=== PATIENT | male | born 1985 | race Caucasian/White ===

== ENCOUNTER 2022-12-07 07:11 | Emergency (ER) | payer OTHER, SELFPAY ==
[2022-12-07 07:14] VITALS: BP 138/72; PULSE 65; RESP 18; TEMP 36.8; O2SAT 99; BMI 29.5
--- NOTE | 2022-12-07 07:31 | ED.NAVMDI1 ---
HPI - Nausea/Vomiting/Diarrhea General Chief complaint: Nausea/Vomiting/Diarrhea Stated complaint: VOMITING Time Seen by Provider: 12/07/22 07:31 Source: patient Mode of arrival: walk-in History of Present Illness HPI Narrative: Patient does emergency department complaining of nausea, vomiting. Patient states he is in rehab for heroine abuse. He has been vomiting and diarrhea for the last 3 days and chills. He has not been able to keep anything down he feels dehydrated. Last time he used heroin was 3 days ago. He denies any fever, chills, cough, chest pain, shortness of breath. He denies any abdominal pain. He denies any hematemesis, melena, hematochezia. He was given Phenergan at 5 in the morning has not had any relief. Related Data Allergies Allergy/AdvReac Type Severity Reaction Status Date / Time No Known Drug Allergies Allergy Verified 12/07/22 07:13 Review of Systems ROS Status of ROS 10 or more systems reviewed and unremarkable except as noted in history and below Exam Narrative Exam Narrative: Nurses notes and vital signs reviewed and patient is not hypoxic. General: Nontoxic, Well-appearing and in no apparent distress. Skin: Warm, dry, no pallor noted. No Rash Head: Normocephalic, atraumatic. Neck: Supple, non-tender. Eye: Pupils are equal, round and EOMI. No scleral icterus. Ears, Nose, Mouth, and Throat: TM clear, no posterior oropharynx erythema or nasal mucosal hypertrophy, uvula is mid-line Oral mucosa is moist Cardiovascular: Regular Rate and Rhythm without murmur, gallop or rub. Respiratory: No accessory muscle use or respiratory distress. Lungs are clear to auscultation, no wheezing, rales or rhonchi Chest Wall: no tenderness Back: No midline thoracic or lumbar vertebral tenderness. No CVA tenderness Musculoskeletal: normal ROM, no calf or popliteal tenderness, no lower extremity edema/swelling GI: Abdomen is soft, non-distended. Normal bowel sounds. No masses appreciated. No tenderness to palpation. No rebound, guarding, or rigidity noted. Neurological: A&O x4. No cranial nerve dysfunction observed. No truncal ataxia. Moves all extremities. Sensation intact. Psychiatric: Cooperative and interactive. Normal mood and affect. Constitutional Vital Signs, click to edit/add: Last Vital Signs Temp 98.2 F 12/07/22 07:14 Pulse 65 12/07/22 07:14 Resp 18 12/07/22 07:14 BP 138/72 H 12/07/22 07:14 Pulse Ox 99 12/07/22 07:14 O2 Del Method Room Air 12/07/22 07:14 Course Vital Signs Vital signs: Vital Signs Temperature 98.2 F 12/07/22 07:14 Pulse Rate 65 12/07/22 07:14 Respiratory Rate 18 12/07/22 07:14 Blood Pressure 138/72 H 12/07/22 07:14 Pulse Oximetry 99 12/07/22 07:14 Oxygen Delivery Method Room Air 12/07/22 07:14 Temperature 98.2 F 12/07/22 07:14 Pulse Rate 65 12/07/22 07:14 Respiratory Rate 18 12/07/22 07:14 Blood Pressure 138/72 H 12/07/22 07:14 Pulse Oximetry 99 12/07/22 07:14 Oxygen Delivery Method Room Air 12/07/22 07:14 MDM - Nausea/Vomiting/Diarrhea MDM Narrative Medical decision making narrative: Patient given Zofran, and IV fluids. He requested medication for restlessness and given clonidine 0.1 mg po. Patient is tolerating by mouth.Patient stated he wanted something to help him sleep and he was feeling restless. He was given hydroxyzine and clonidine 0.2 mg by mouth. Patient felt better. He is tolerating by mouth. At this time the patient is without objective evidence of an acute process requiring hospitalization or inpatient management. The patient has remained hemodynamically stable. No additional indication for emergent studies at this time. I answered all questions. Discussed discharge instructions including standard anticipatory guidance and what should prompt a return to the emergency department, including if they get worse are not getting better or develops any new or concerning symptoms. I've given them specific time frame in which to follow-up, and who to follow-up with. The patient demonstrates understanding. Patient is nontoxic and stable for discharge with outpatient follow-up. This note was created with the assistance of a speech recognition program. Although the intention is to generate documents that actually reflects the content of the visit, no guarantees can be provided that every mistake has been identified and corrected by editing. Differential Diagnosis Differential diagnosis: Likely drug-induced nausea and vomiting and dehydration Medical Records Attestation: I reviewed the patient's medical records. Medical records narrative: [facility] documents reviewed. Lab Data Attestation: I reviewed the patient's lab results. Discharge Plan Discharge Chief Complaint: Nausea/Vomiting/Diarrhea Clinical Impression: Withdrawal from opioids, Dehydration Patient Disposition: Home, Self-Care Time of Disposition Decision: 11:07 Condition: Good Mode of Transportation: Private Vehicle Instructions: Opioid Withdrawal (ED) Stand Alone Forms: Portal Instructions Referrals: LILIBETH FLETCHER [Primary Care Provider] - 1 week Discharge Date/Time: 12/07/22 11:18
[2022-12-07] MEDS: ONDANSETRON PF 4 MG/2 ML VIAL IV (07:41)
[2022-12-07] MEDS: 0.9 % SODIUM CHLORIDE 1,000 ML 100 ML IV (07:41)
[2022-12-07] MEDS: CLONIDINE HCL 0.1 MG TABLET PO (08:26)
[2022-12-07] MEDS: DIPHENHYDRAMINE HCL 50 MG/ML (1ML) VIAL IV (08:48)
[2022-12-07] MEDS: CLONIDINE HCL 0.1 MG TABLET 0.2 MG PO (09:49)
[2022-12-07] MEDS: HYDROXYZINE PAMOATE 25 MG CAPSULE 50 MG PO (10:00)
[2022-12-07] MEDS: ORPHENADRINE 60 MG/ 2 ML VIAL IV (10:40)
== END 2022-12-07 11:18 | disposition home or self-care (01) ==
PROVIDERS: Emergency Provider Emergency Medicine; PCP Nurse Practitioner Family
DX: E86.0 Dehydration (principal); F11.23 Opioid dependence with withdrawal
CPT/HCPCS: 96361; 96374; 96375; 99284

== ENCOUNTER 2022-12-08 02:13 | Emergency (ER) | payer OTHER, SELFPAY ==
[2022-12-08] VITALS (19 sets, daily range): BP systolic 93–136; BP diastolic 62–76; PULSE 52–80; RESP 15–24; TEMP 37.3; O2SAT 97–99; BMI 21.7
[2022-12-08 03:08] LABS: Basophils Percent Auto 0.2 % (0.2-2.0); Hematocrit 39.7 % (42.0-54.0); Hemoglobin 13.8 g/dL (14.0-18.0); Immature Granulocytes Abs Auto 0.03 10^3/uL (0.00-0.03); Immature Granulocytes Pct Auto 0.3 % (0.0-0.5); Lymphocytes Absolute Auto 1.1 10^3/uL (1.2-3.8); Lymphocytes Percent Auto 10.3 % (20.5-60.0); Mean Corpuscular HGB Conc 34.8 g/dL (29.9-35.2); Mean Corpuscular Hemoglobin 30.1 pg (25.9-34.0); Mean Corpuscular Volume 86.7 fL (80.0-94.0); Mean Platelet Volume 9.6 fL (9.5-13.5); Monocytes Absolute Auto 0.9 10^3/uL (0.3-0.8); Monocytes Percent Auto 9.1 % (1.7-12.0); Neutrophils Absolute Auto 8.3 10^3/uL (1.4-6.5); Neutrophils Percent Auto 80.1 % (43.0-75.0); Platelet Count 282 10^3/uL (150-450); Red Blood Count 4.58 10^6/uL (4.70-6.10); Red Cell Distribution Width 11.9 % (11.0-15.0); White Blood Count 10.4 10^3/uL (4.0-11.0)
[2022-12-08 03:19] LABS: Alanine Aminotransferase 21 U/L (16-63); Albumin Globulin Ratio 1.3; Alkaline Phosphatase 57 U/L (46-116); Anion Gap 16.9; Aspartate Amino Transferase 31 U/L (15-37); BUN Creatinine Ratio 12.5; Bilirubin Total 1.7 mg/dL (0.2-1.0); Calcium 8.9 mg/dL (8.5-10.1); Chloride 97 mmol/L (98-107); Estimated GFR (African America >60 (>=60); Estimated GFR (Non-African Ame >60 (>=60); Globulin 3.2 g/dL; Glucose 134 mg/dL (74-106); Sodium 134 mmol/L (136-145); Total Protein 7.2 g/dL (6.4-8.2)
[2022-12-08] MEDS: PROMETHAZINE HCL 25 MG/ML VIAL 12.5 MG IV ×2 (03:23→04:31)
[2022-12-08] MEDS: FAMOTIDINE/PF 20 MG/2 ML VIAL IV (03:23)
[2022-12-08] MEDS: 0.9 % SODIUM CHLORIDE 1,000 ML 1000 ML IV ×2 (03:24→04:14)
[2022-12-08 03:35] LABS: Potassium 2.9 mmol/L (3.5-5.1)
--- NOTE | 2022-12-08 03:54 | ED.GENADUL1 ---
HPI - General Adult General Chief complaint: Nausea/Vomiting/Diarrhea Stated complaint: FEVER Time Seen by Provider: 12/08/22 02:54 Source: patient Mode of arrival: walk-in Limitations: no limitations History of Present Illness HPI narrative: This 37-year-old male with a history of substance abuse presents for reevaluation of nausea, vomiting and anxiety. He is currently at [facility] for heroin. He states he last used heroin 3 days ago. He states they have medications to give him but he cannot keep anything down. He states he has not slept in 3 days and wants something to help him sleep. He was seen here earlier today and given medications including hydroxyzine, Zofran and clonidine. The patient states he has gone through detox before approximately 4 years ago and was clean for 4 years. He states to me that he wants Ativan to help him sleep. I explained to him that I will not give him Ativan as that is another controlled substance. He states that detox centers prescribed Ativan. I signed him that I understand this but I am not a detox center, this is an emergency department and I'm not going to give him any controlled substances. Related Data Home Medications Medication Instructions Recorded Confirmed clonidine HCl 0.1 mg tablet 0.1 mg PO DAILY 12/08/22 12/08/22 desmopressin 0.1 mg tablet 0.1 mg PO DAILY 12/08/22 12/08/22 gabapentin 300 mg capsule 300 mg PO Q12H 12/08/22 12/08/22 methocarbamol 750 mg tablet 750 mg PO 12/08/22 ondansetron 8 mg disintegrating 8 mg PO Q8H 12/08/22 12/08/22 tablet pramipexole 0.5 mg tablet 0.5 mg PO 12/08/22 quetiapine 50 mg tablet 50 mg PO Q6H 12/08/22 12/08/22 Allergies Allergy/AdvReac Type Severity Reaction Status Date / Time No Known Drug Allergies Allergy Verified 12/08/22 02:20 Review of Systems ROS Status of ROS 10 or more systems reviewed and unremarkable except as noted in history and below PFSH PFS Social History Smoking status: Current every day smoker Exam Narrative Exam Narrative: Nurses note and vital signs reviewed and patient is not hypoxic. Blood pressure is moderately low, he has a normal pulse, he is not hypoxic with pulse ox of 99 percent on room air General: The patient appears uncomfortable but is nontoxic. He had one episode of emesis after arrival. No respiratory distress Skin: Warm, dry, no pallor noted. There is no rash noted. Head: Normocephalic, atraumatic Eye: Normal conjunctiva, no drainage, EOMI. PERRL, No scleral icterus Ears, Nose, Mouth, and Throat: oral mucosa is moist. Cardiovascular: Regular Rate and Rhythm S1 and S2, no murmurs rubs or gallops appreciated Respiratory: Patient is in no distress, no accessory muscle use, lungs are clear to auscultation, no wheezing, rales or rhonchi Back: non-tender, no CVA tenderness bilaterally to percussion. GI: Normal bowel sounds, no tenderness to palpation, no masses appreciated. No rebound, guarding, or rigidity noted. Musculoskeletal: Moving all extremities, no deformity noted Neurological: A&O x4, normal speech Psychiatric: Cooperative, Anxious, requesting Ativan Constitutional Vital Signs, click to edit/add: Last Vital Signs Temp 99.1 F 12/08/22 02:16 Pulse 61 12/08/22 05:11 Resp 16 12/08/22 05:11 BP 113/67 12/08/22 06:17 Pulse Ox 99 12/08/22 05:11 O2 Del Method Room Air 12/08/22 05:11 Course Vital Signs Vital signs: Vital Signs Temperature 99.1 F 12/08/22 02:16 Pulse Rate 70 12/08/22 02:16 Respiratory Rate 18 12/08/22 02:16 Blood Pressure 93/62 12/08/22 02:16 Pulse Oximetry 99 12/08/22 02:16 Oxygen Delivery Method Room Air 12/08/22 02:16 Temperature 99.1 F 12/08/22 02:16 Pulse Rate 61 12/08/22 05:11 Respiratory Rate 16 12/08/22 05:11 Blood Pressure 113/67 12/08/22 06:17 Pulse Oximetry 99 12/08/22 05:11 Oxygen Delivery Method Room Air 12/08/22 05:11 Medical Decision Making MDM Narrative Medical decision making narrative: This 37-year-old male presents to emergency Department for the 2nd time in 24 hours for evaluation of opiate withdrawal. The patient has a history of heroin abuse and checked himself into [facility] after last using heroin 3 days ago. He is having nausea, vomiting, irritability, insomnia, restless leg syndrome. He states he is trying to get clean. He has been given medications at the detox center but he states due to the nausea vomiting he cannot keep anything down. He was seen earlier in this emergency department and given fluids clonidine Zofran with clinical improvement however he went back to the facility and his symptoms recurred. Upon arrival an IV was placed and he was given a liter of normal saline, Phenergan and Pepcid. Routine labs are reviewed. His labs are normal with the exception of a potassium of 2.9 for which she received IV potassium. I also ordered oral potassium but he cannot tolerate it.He continues to have vomiting and was given another 12.5 mg of Phenergan. His agitation has not improved and he was given clonidine. He states he has not slept in 3 days and feels that he can get a couple hours of sleep that he will feel better and be able to tolerate his medications and participate in his detox. I was considering giving him Haldol or Geodon but 1st ordered an EKG to evaluate the QT interval as he has had multiple doses of Phenergan, Benadryl etc. The QT interval was lengthened and I did not feel it was safe to give him an antipsychotic medication that could further prolong the QT interval. I reviewed multiple medications and it seems that the only safe medications to relieve some of his agitation besides clonidine are benzodiazepines. I had initially ordered Restoril for him and tried to convince him to eat some crackers and drink some water. He ate several bites of the crackers but then threw them out stating that he cannot put anything in his stomach. I agreed to give him 1 dose of IV Ativan for his agitation and to help him sleep. He will also be given an additional IV of D5NS with 20 meq of potassium to further correct his potassium since he was unable to tolerate it orally. He'll be discharged to [facility] center with prescription for oral potassium and a copy of his EKG to share with his health care providers at [facility]. He is grateful and understanding of my reluctance to give him a scheduled drug to treat his drug addiction/withdrawl symptoms Lab Data Labs: Lab Results 12/08/22 Range/Units 02:25 WBC 10.4 (4.0-11.0) 10^3/uL RBC 4.58 L (4.70-6.10) 10^6/uL Hgb 13.8 L (14.0-18.0) g/dL Hct 39.7 L (42.0-54.0) % MCV 86.7 (80.0-94.0) fL MCH 30.1 (25.9-34.0) pg MCHC 34.8 (29.9-35.2) g/dL RDW 11.9 (11.0-15.0) % Plt Count 282 (150-450) 10^3/uL MPV 9.6 (9.5-13.5) fL Neut % (Auto) 80.1 H (43.0-75.0) % Lymph % (Auto) 10.3 L (20.5-60.0) % Crisp % (Auto) 9.1 (1.7-12.0) % Eos % (Auto) 0.0 L (0.9-7.0) % Baso % (Auto) 0.2 (0.2-2.0) % Neut # (Auto) 8.3 H (1.4-6.5) 10^3/uL Lymph # (Auto) 1.1 L (1.2-3.8) 10^3/uL Crisp # (Auto) 0.9 H (0.3-0.8) 10^3/uL Eos # (Auto) 0.0 (0.0-0.7) 10^3/uL Baso # (Auto) 0.0 (0.0-0.1) 10^3/uL Abs Immat Gran (auto) 0.03 (0.00-0.03) 10^3/uL Imm/Tot Granulo (auto) 0.3 (0.0-0.5) % Sodium 134 L (136-145) mmol/L Potassium 2.9 L* (3.5-5.1) mmol/L Chloride 97 L (98-107) mmol/L Carbon Dioxide 23.0 (21.0-32.0) mmol/L Anion Gap 16.9 BUN 13.0 (7.0-18.0) mg/dL Creatinine 1.04 (0.70-1.30) mg/dL Est GFR ( Amer) >60 (>=60) Est GFR (Non-Af Amer) >60 (>=60) BUN/Creatinine Ratio 12.5 Glucose 134 H (74-106) mg/dL Calcium 8.9 (8.5-10.1) mg/dL Total Bilirubin 1.7 H (0.2-1.0) mg/dL AST 31 (15-37) U/L ALT 21 (16-63) U/L Alkaline Phosphatase 57 (46-116) U/L Total Protein 7.2 (6.4-8.2) g/dL Albumin 4.0 (3.4-5.0) g/dL Globulin 3.2 g/dL Albumin/Globulin Ratio 1.3 ECG Data Attestation: I personally reviewed and interpreted this ECG as follows: (EKG interpretation sinus rhythm at 65 beats for minute, RSR in lead V1 and V2, nonspecific ST changes, right axis deviation, OH interval is 168 ms, QRS duration is 92 ms, QT 486 ms, QTC 498 ms, no acute ST segment elevation) Discharge Plan Discharge Chief Complaint: Nausea/Vomiting/Diarrhea Clinical Impression: Withdrawal from opioids, Acute hypokalemia Patient Disposition: Home, Self-Care Time of Disposition Decision: 06:31 Condition: Fair Prescriptions / Home Meds: No Action clonidine HCl 0.1 mg tablet 0.1 mg PO DAILY desmopressin 0.1 mg tablet 0.1 mg PO DAILY Rx Instructions: HS gabapentin 300 mg capsule 300 mg PO Q12H quetiapine 50 mg tablet 50 mg PO Q6H pramipexole 0.5 mg tablet 0.5 mg PO ondansetron 8 mg tablet,disintegrating 8 mg PO Q8H methocarbamol 750 mg tablet 750 mg PO Instructions: Hypokalemia (ED), Opioid Withdrawal (ED) Stand Alone Forms: Portal Instructions Referrals: LILIBETH FLETCHER [Primary Care Provider] - 1 week
[2022-12-08] MEDS: POTASSIUM CHLORIDE 10 MEQ IN WATER 100 ML PIGGYBACK IV (04:13)
--- NOTE | 2022-12-08 05:35 | ECG_ITS ---
[facility] [place] Test Date: 2022-12-08 Pat Name: ANTHONY TEE Department: Room: - Gender: Male [employer] Attendant: : 1985 Requested By: LILIBETH FLETCHER Order Number: [id number] Reading MD: RIYA TIJERINA Measurements Intervals [place] Rate: 65 P: 65 CA: 168 QRS: 93 QRSD: 92 T: 91 QT: 486 QTc: 498 Interpretive Statements 1100 Sinus rhythm 2420 RSR (QR) in lead V1/V2, consistent with right ventricular conduction delay 4164 Twave abnormality, possible anterior ischemia 7102 Moderate right axis deviation 9150 abnormal ECG No previous ECG available for comparison Electronically Signed On 12-08-2022 7:23:34 EDT by RIYA TIJERINA
[2022-12-08] MEDS: CLONIDINE HCL 0.1 MG TABLET 0.2 MG PO (06:17)
--- NOTE | 2022-12-08 06:27 | PC.NURSE ---
Report called to [facility]. Will be picking him up.
[2022-12-08] MEDS: LORAZEPAM 2 MG/ML 1 ML VIAL 1 MG IV (06:43)
[2022-12-08] MEDS: POTASSIUM CHLORIDE IN 0.9%NACL 1,000 ML 250 MEQ IV (07:43)
[2022-12-08] MEDS: METOCLOPRAMIDE HCL 10 MG/2 ML VIAL IVP (10:09)
[2022-12-08] MEDS: CLONIDINE HCL 0.1 MG TABLET PO (10:09)
[2022-12-08] MEDS: LORAZEPAM 2 MG/ML 1 ML VIAL IV (10:09)
[2022-12-08] MEDS: DEXTROSE 5%-LACTATED RINGERS 1,000 ML 250 ML IV (11:00)
[2022-12-08] MEDS: POTASSIUM CHLORIDE 10 MEQ ER TABLET 40 MEQ PO (13:28)
--- NOTE | 2022-12-08 14:44 | PC.NURSE ---
1345 pt ambulated to bathroom dc instructions given pt verbalized understanding- pt awaiting ride to [facility]
--- NOTE | 2022-12-08 14:49 | PC.NURSE ---
this nurse calls [facility] again at this time to see if the ride will be coming for the patient staff says she will notfiy staff members
== END 2022-12-08 15:40 | disposition home or self-care (01) ==
PROVIDERS: Emergency Medicine; Emergency Provider Emergency Medicine; PCP Nurse Practitioner Family
DX: F11.23 Opioid dependence with withdrawal (principal); E87.6 Hypokalemia; F17.210 Nicotine dependence, cigarettes, uncomplicated; Z79.899 Other long term (current) drug therapy
CPT/HCPCS: 36415; 80053; 82140; 85025; 93005; 96361; 96374; 96375; 96376; 99285

== ENCOUNTER 2024-03-18 10:24 | Outpatient (OUT) | payer MEDICAID, SELFPAY ==
--- NOTE | 2024-03-18 10:27 | US_ITS ---
The [address] [address] Patient Name: ANTHONY TEE MRN: [id number] date: 1985 Sex: M Assigned Patient Location: US Current Patient Location: Accession/Order Number: [id number] Exam Date: 03/18/2024 10:28 Report Date: 03/19/2024 09:33 At the request of: LILIBETH FLETCHER Procedure: US soft tissue head and neck EXAM: US soft tissue head and neck HISTORY: Cellulitis COMPARISON: None. TECHNIQUE: A scale and color FINDINGS: The region of the patient's palpable abnormality in oval area of hypoechogenicity is observed measuring 1.7 x 0.9 x 0.8 cm surrounded with hypoechogenicity suspected to be subcutaneous edema. This is superficial to the bone US/US soft tissue head and neck IMPRESSION: Indeterminate ultrasound findings possibly representing cellulitis/abscess. Consider CT scan without and with contrast for further characterization Electronically authenticated by: RAMYA WALLER Date: 03/19/2024 09:33
== END 2024-03-18 10:25 | disposition home or self-care (01) ==
LOC: US 10:24
PROVIDERS: PCP Nurse Practitioner Family; Visit Provider Nurse Practitioner Family
DX: L03.90 Cellulitis, unspecified (principal)
CPT/HCPCS: 76536

== ENCOUNTER 2024-08-13 10:06 | Outpatient (OUT) | payer MEDICAID, SELFPAY ==
--- OUTSIDE RECORDS SUMMARY | 2024-08-13 10:10 | XMS_ITS | CCD ---
Author Organization [facility] Care Team Providers Care Wood Machinist Name Role Phone No, Physician Unavailable Unavailable JERARDO EMERY Attending Unavailable EMERYJERARDO FRITZ Attending Unavailable EMERYJERARDO FRITZ Attending Unavailable PacerMarisa Attending Unavailable JERARDO EMERY Attending Unavailable JERARDO EMERY Attending Unavailable PacerMarisa Attending Unavailable CHRISTINASUSAN CAPPS Attending Unavailable CHRISTINASUSAN Attending Unavailable CHRISTINASUSAN Attending Unavailable CHRISTINASUSAN Attending Unavailable CHRISTINASUSAN Attending Unavailable CHRISTINASUSAN Attending Unavailable CHRISTINASUSAN Attending Unavailable CHRISTINASUSAN Attending Unavailable CHRISTINASUSAN Attending Unavailable CHRISTINASUSAN Attending Unavailable CHRISTINASUSAN Attending Unavailable CHRISTINASUSAN Attending Unavailable CHRISTINASUSAN Attending Unavailable CHRISTINASUSAN Attending Unavailable CHRISTINASUSAN Attending Unavailable CHRISTINASUSAN Attending Unavailable CHRISTINASUSAN Attending Unavailable CHRISTINASUSAN Attending Unavailable CHRISTINASUSAN Attending Unavailable CHRISTINASUSAN Attending Unavailable CHRISTINASUSAN Attending Unavailable CHRISTINASUSAN Attending Unavailable CHRISTINASUSAN Attending Unavailable CHRISTINASUSAN Attending Unavailable CHRISTINASUSAN Attending Unavailable CHRISTIANSUSAN Attending Unavailable CHRISTINASUSAN Attending Unavailable CHRISTINASUSAN Attending Unavailable CHRISTINASUSAN Attending Unavailable CHRISTINASUSAN Attending Unavailable CHRISTINASUSAN Attending Unavailable CHRISTINASUSAN Attending Unavailable CHRISTINASUSAN Attending Unavailable CHRISTINASUSAN Attending Unavailable PacerMarisa Attending Unavailable Pacer, Marisa Pelayo Attending Unavailable SUSAN VASQUEZ Attending Unavailable Pacer, Marisa Pelayo Attending Unavailable Pacer, Marisa Pelayo Attending Unavailable Pacer, Marisa Pelayo Attending Unavailable Pacer, Marisa Pelayo Attending Unavailable Pacer, Marisa Pelayo Attending Unavailable HILLARY WAGNER Attending Unavailable NO, PHYSICIAN Primary Care Unavailable STEENHOFF, GERALDO Attending Unavailable STEENHOFF, GERALDO Admitting Unavailable PEACE, GENOVEVA E Primary Care Unavailable SELF, REFERRED Referring Unavailable ROSS, GENOVEVA Admitting Unavailable ROSS, GENOVEVA Attending Unavailable DONTE, HOLA R Primary Care Unavailable LARRY, LILIBETH Admitting Unavailable LARRY, LILIBETH Attending Unavailable DONTE, HOLA R Primary Care Unavailable LARRY, LILIBETH Consulting Unavailable NO FAMILY, PHYSICIAN Primary Care Provider Unava ilable DO [facility] Emergency Provider SHIRA BARNARD Primary Care Physician Unavail able NO FAMILY, PHYSICIAN Primary Care Unavailable Sloan Jc Attending Unavailable Sloan Jc Admitting Unavailable Jesus Cordero Attending Unavailable Jesus Cordero Attending Unavailable No Family, Physician Primary Care Unavailable SUSAN JEFFRIES Attending Unavailable SUSAN JEFFRIES Referring Unavailable No Family, Physician Primary Care Unavailable Medications Current Medications Medication Drug Class(es) Dates Sig (Normalized) Sig (Original) UNABLE TO FIND (1 source) UNABLE TO FIND s eroquel . Active Problems Problem Classification Problem Date Documented Date Episodic/Chronic Anxiety disorders (1 source) Anxiety disorder; Translations: [Anxiety disorder, unspecified] Onset: 01-22-2024 Chronic Open wounds of head; neck; and trunk (1 source) Laceration of head; Translations: [Laceration without foreign body of other part of head, initial encounter] Onset: 01-22-2024 Episodic Skin and subcutaneous tissue infections (1 source) Cutaneous abscess of face; Translations: [Cutaneous abscess of face] Onset: 01-19-2024 Episodic Substance-related disorders (1 source) Smoker 01-22-2024 Chronic Comment on above: Added secondary to d ocumentation in Social History. Results Test Name Value Interpretation Reference Range Facility CT Head or Brain w/o Contras ton 01-23-2024 CT Head or Brain w/o Contrast Exam Date/Time: 01/22/2024 21:23 EDT Reason for Exam: Syncope Report IMPRESSION: NEGATIVE CT SCAN OF THE BRAIN. CLINICAL HISTORY: Syncope. Seizure-like activity. COMMENT: Unenhanced images were obtained. The ventricles and basal cisterns and cortical sulci appear normal. There is no mass effect nor midline shift. No abnormal attenuation within the brain is noted. There is no evidence of intracranial hemorrhage nor extra-axial hematoma. No mass lesion is evident. No skull fracture is noted. All CT scans at this facility use dose modulation, iterative reconstruction, and/or weight based dosing when appropriate to reduce radiation dose to as low as reasonably achievable. Ordering Provider: Charlene De La Rosa FINAL REPORT Dictated: 01/23/2024 8:38 am Blair Corbett M.D. Signed (Electronic Signature): 01/23/2024 8:38 am Signed by: Blair Corbett M.D. Transcribed by: NIKITA Technologist: MAGDIEL Bey [facility] ED Note-Physicianon 01-23-20 ED Note-Physician ED Note-Physician Basic Information Time Seen: Charlene De La Rosa PA-C. 01/22/2024 20:36 Chief Complaint pt stating hes having seizure like activity. Pt states when he gets emotional he feels like he passes out but can hear everyone talking. hx drug abuse and recently was in rehab. Pt was seen at another hospital for dehydration and fell upon d/c and split History of Present Illness Patient is a 38-year-old male with a history of drug abuse who presents to the ED with seizure-like activity. Patient describes the seizure-like activity as occurring when he gets emotional. He describes it as feeling like the ground is shaking and states he feels as if he is dissociated from his body. Patient notes he is able to hear people during these episodes but feel as if he is unable to talk. Mother states she witnessed an episode and states the patient was experiencing abnormal mentation for 2 to 3 minutes but then returned to baseline. She denies convulsion like activity. Patient notes he was in a rehab facility for 7 days when he fell, hitting his chin on the floor. He developed an abscess on his chin and was taken to the hospital in which they drained the abscess and placed him on Augmentin and Bactrim. Patient denies any fevers or chills. He notes he is having purulent drainage from the abscess but it is improved from prior. Patient denies any symptoms at this time. Review of Systems A 10 point review of systems is negative except as noted above. Medical and Surgical History: Reviewed and noted Social history: Lives at home Family History: Reviewed. Tobacco: Denies Physical Exam Vitals & Measurements T: 36.6 ?C(Oral) HR: 113(Peripheral) RR: 18 BP: 148/96 SpO2: 98% HT: 180.34 cm WT: 58.2 kg BMI: 17.9 General: The patient appears well and in no apparent distress. Patient is resting comfortably on cart. Skin: Warm, dry, no pallor noted. Head: Normocephalic, atraumatic, 2 cm laceration to the chin with copious purulent drainage, no tenderness to palpation Neck: No JVD Eye: PERRLA, EOMI ENT: Moist mucus membranes Cardiovascular: Regular rate normal peripheral perfusion Respiratory: No respiratory distress no accessory muscle use no obvious audible wheezing Chest Wall: no deformity Musculoskeletal: normal ROM, no deformity, no swelling GI: Soft no obvious distention. No rebound or rigidity. No guarding. No tenderness. Neurological: A&O moves all extremities equal strength and symmetry, no focal neurological deficits Psychiatric: Cooperative and appropriate Medical Decision Making Patient is a 38-year-old male with a history of drug abuse who presents to the ED with seizure-like activity. Patient is afebrile. There are no focal neurological deficits. On exam patient has a 2 cm laceration to his chin with copious amount of purulent drainage. Patient previously had an abscess that was drained. He is on Bactrim and Augmentin and has been compliant with the medication. Lab work is obtained. Patient has a sodium of 133 and a chloride of 95. Troponin is negative. CT head/brain was obtained, however the patient became agitated while waiting for the results to be read and decided to leave AGAINST MEDICAL ADVICE. The patient understands the risks and benefits of leaving the hospital. The patient signed documentation that they would like to leave at their own insistence and against the advice of the physicians. The patient was advised of the possible dangers to their life and health from this departure, and the patient assumes the risks and consequences involved and releases the staff and the Medical Center from any liability in connection with leaving AGAINST MEDICAL ADVICE. The patient understands that we cannot fully assess the patient for the current complaint at this time. The patient understands and the possibilities of and disability and consequences of leaving AGAINST MEDICAL ADVICE. The patient has been informed of the dangers of leaving AGAINST MEDICAL ADVICE and still is insistent upon signing out. The patient has arrived at this decision without being subjected to coercion and with a full understanding in appreciation of the risks, benefits, and alternatives of the decision. The patient is not intoxicated. Patient was advised to return to the ED with any worsening symptoms. He is agreeable with the plan and all questions were answered. CT head/brain shows no acute intracranial processes. Assessment/Plan Anxiety (F41.9: Anxiety disorder, unspecified) Chin laceration (S01.81XA: Laceration without foreign body of other part of head, initial encounter) Orders: Basic Metabolic Panel Blood Culture Charcoal Blood Culture Charcoal CBC w/ Auto Diff CT Head or Brain w/o Contrast eGFR Extra Blue Tube Extra SST Tube Lactic Acid Troponin Disposition Plan Patient Discharge Condition fair Discharge Disposition Left AGAINST MEDICAL ADVICE Discharge Prescription List Prescriptions No active prescription medications Follow- (more content not included)... Normal [facility] Comment on above: Result Comment: Elec tronically Signed By: Charlene De La Rosa PA-C\.br\Date and Time Signed: 01/23/24 00:16 EDT\.br\Electronically Co-Signed By: Jesus Cordero DO\.br\Date and Time Co-Signed: 01/23/24 04:48 EDT [facility] 01-22-2024 Anion gap [Moles/Vol] 16 mmol/L Normal 6-16 [facility] Comment on above: Performed By: #### 2 [id number] #### [facility] [address] [place] [address] Calcium [Mass/Vol] 9.7 mg/dL Normal 8.9-11.1 [facility] Comment on above: Performed By: #### 2 [id number] #### [facility] [address] [place] [address] Chloride [Moles/Vol] 95 mmol/L Low 101-111 [facility] Comment on above: Performed By: #### 2 [id number] #### [facility] [address] [place] [address] CO2 [Moles/Vol] 27 mmol/L Normal 21-31 [facility] Comment on above: Performed By: #### 2 [id number] #### [facility] [address] [place] [address] Creatinine [Mass/Vol] 0.8 mg/dL Normal 0.5-1.3 [facility] Comment on above: Performed By: #### 2 [id number] #### [facility] [address] [place] [address] Glucose [Mass/Vol] 97 mg/dL Normal 55-199 [facility] Comment on above: Performed By: #### 2 [id number] #### [facility] [address] [place] [address] Potassium [Moles/Vol] 4.6 mmol/L Normal 3.5-5.3 [facility] Comment on above: Performed By: #### 2 [id number] #### [facility] [address] [place] [address] Sodium [Moles/Vol] 133 mmol/L Low 135-145 [facility] Comment on above: Performed By: #### 2 [id number] #### [facility] [address] [place] [address] Urea nitrogen [Mass/Vol] 12 mg/dL Normal 5-21 [facility] Comment on above: Performed By: #### 2 [id number] #### [facility] [address] [place] [address] Urea nitrogen/Creatinine [Mass ratio] 15 No Units Normal 10-20 [facility] Comment on above: Performed By: #### 2 [id number] #### [facility] [address] [place] [address] CBC w/ Auto Diffon 4 Basophils/100 WBC (Bld) 0.6 % Normal 0.0-2.0 [facility] Comment on above: Performed By: #### 2 [id number] #### [facility] [address] [place] [address] Basophils/Leukocytes Auto (Bld) [Pure # fraction] 0.1 E9/L Normal 0.0-0.2 [facility] Comment on above: Performed By: #### 2 [id number] #### [facility] [address] [place] [address] Eosinophils (Bld) [#/Vol] 0.5 E9/L Normal 0.0-0.5 [facility] Comment on above: Performed By: #### 2 [id number] #### [facility] [address] [place] [address] Eosinophils/100 WBC (Bld) 4.8 % Normal 0.0-8.0 [facility] Comment on above: Performed By: #### 2 [id number] #### [facility] [address] [place] [address] Erythrocyte distribution width (RBC) [Ratio] 13.2 % Normal 10.9-14.2 [facility] Comment on above: Performed By: #### 2 [id number] #### [facility] [address] [place] [address] Hematocrit (Bld) [Volume fraction] 50.8 % High 37.7-49.0 [facility] Comment on above: Performed By: #### 2 [id number] #### [facility] [address] [place] [address] Hemoglobin (Bld) [Mass/Vol] 17.3 g/dL Normal 13.5-17.5 [facility] Comment on above: Performed By: #### 2 [id number] #### [facility] [address] [place] [address] Lymphocytes (Bld) [#/Vol] 3.1 E9/L Normal 1.0-4.0 [facility] Comment on above: Performed By: #### 2 [id number] #### [facility] [address] [place] [address] Lymphocytes/100 WBC (Bld) 29.2 % Normal 14.0-50.0 [facility] Comment on above: Performed By: #### 2 [id number] #### [facility] [address] [place] [address] MCH (RBC) [Entitic mass] 30.3 pg Normal 27.0-34.0 [facility] Comment on above: Performed By: #### 2 [id number] #### [facility] [address] [place] [address] MCHC (RBC) [Mass/Vol] 34.1 g/dL Normal 31.4-36.0 [facility] Comment on above: Performed By: #### 2 [id number] #### [facility] [address] [place] [address] MCV (RBC) [Entitic vol] 88.9 fL Normal 80.0-100.0 [facility] Comment on above: Performed By: #### 2 [id number] #### [facility] [address] [place] [address] Monocytes (Bld) [#/Vol] 1.3 E9/L High 0.2-1.0 [facility] Comment on above: Performed By: #### 2 [id number] #### [facility] [address] [place] [address] Neutrophils (Bld) [#/Vol] 5.6 E9/L Normal 2.0-7.5 [facility] Comment on above: Performed By: #### 2 245878 #### [facility] [address] [place] [address] Neutrophils/100 WBC (Bld) 53.4 % Normal 36.0-75.0 [facility] Comment on above: Performed By: #### 2 [id number] #### [facility] [address] [place] [address] Platelet mean volume (Bld) [Entitic vol] 7.5 fL Normal 6.4-10.8 [facility] Comment on above: Performed By: #### 2 [id number] #### [facility] [address] [place] [address] Platelets (Bld) [#/Vol] 428.0 E9/L Normal 150.0-500.0 [facility] Comment on above: Performed By: #### 2 [id number] #### [facility] [address] [place] [address] RBC (Bld) [#/Vol] 5.7 E12/L Normal 4.3-5.9 [facility] Comment on above: Performed By: #### 2 [id number] #### [facility] [address] [place] [address] WBC corrected for nucl RBC Auto (Bld) [#/Vol] 10.5 E9/L Normal 4.0-11.0 [facility] Comment on above: Performed By: #### 2 [id number] #### [facility] [address] [place] [address] CHEMISTRYOrdered By: SYSTEM SYSTEM on 01-22-2024 Anion gap [Moles/Vol] 16 mmol/L Normal 6 - 16 mEq/L R emisol Chem Calcium [Mass/Vol] 9.7 mg/dL Normal 8.9 - 11. 1 mg/dL [facility] Chloride [Moles/Vol] 95 mmol/L Low 101 - 1 11 mmol/L [facility] CO2 [Moles/Vol] 27 mmol/L Normal 21 - 31 mmol/L [facility] Creatinine [Mass/Vol] 0.8 mg/dL Normal 0.5 - 1.3 mg/dL [facility] eGFR 116 mL/min/1.73 m2 Normal >=59mL/mi n/1. 73 m2 [facility] Glucose [Mass/Vol] 97 mg/dL Normal 55 - 199 mg/dL [facility] Lactic Acid Lvl 1.0 mmol/L Normal 0.5 - 2.2 mmol/L [facility] Potassium [Moles/Vol] 4.6 mmol/L Normal 3.5 - 5.3 mmol/L [facility] Sodium [Moles/Vol] 133 mmol/L Low 135 - 145 mmol/L [facility] Troponin HS 5.40 pg/mL Low 15.90 - 38.40 pg/mL [facility] Comment on above: Interpretive Data: T he 95% CI (Confidence Interval) PPV (Positive Predictive Value) for myocardial infarction in females is 38 pg/mL, in males 51 pg/mL. The results should be used in conjunction with clinical conditions of myocardial infarction. (Access High Sensitivity Troponin I Instructions For Use, Homero Wiley, December 2017) Urea nitrogen [Mass/Vol] 12 mg/dL Normal 5 - 21 mg/dL [facility] Urea nitrogen/Creatinine [Mass ratio] 15 mg/mg Normal 10 - 20 [facility] ED Clinical Summaryon 2023 ED Clinical Summary ED Clinical Summary [place] [id number] ED Clinical Summary Person Information Name: MOSHE TEE/[facility] Age: 38 Years : 1985 Sex: Male Language: Martiniquais PCP: AKIL HERNANDEZ, SHIRA Marsh Marital Status: Single Visit Id: Visit Reason: Anxiety; Medical problem - minor; SEIZURE LIKE ACTIVITY Speciality: Acuity: 4 Enc Type: Emergency Med Service: Emergency Arrival: 01/22/2024 19:24:28 Discharge: 01/22/2024 22:19:22 LOS: 000 02:55 Checkin: 01/22/2024 19:24:28 Checkout: 01/22/2024 22:19:22 Dispo Type: Left Against Medical Advice EVENTS: Event Name Event Status Request Date/Time Start Date/Time Complete Date/Time Arrive Complete 01/22/2024 19:24:28 01/22/2024 19:24:28 01/22/2024 19:24:28 Document Home Meds Request 01/22/2024 19:24:28 Triage Complete 01/22/2024 19:24:28 01/22/2024 19:48:22 01/22/2024 19:48:22 Registration Complete 01/22/2024 19:31:23 01/22/2024 19:31:23 01/22/2024 19:31:23 Reg Complete Request 01/22/2024 19:31:23 Reg Bed Request Complete 01/22/2024 19:31:23 01/22/2024 19:31:23 01/22/2024 19:31:23 Bed Assign Complete 01/22/2024 20:35:21 01/22/2024 20:35:21 01/22/2024 20:35:21 Dr Exam Complete 01/22/2024 20:35:21 01/22/2024 20:36:13 01/22/2024 20:36:13 RN Exam Complete 01/22/2024 20:35:21 01/22/2024 21:11:24 01/22/2024 21:11:24 Registration Request 01/22/2024 20:36:13 Dr Exam Complete 01/22/2024 20:39:34 01/22/2024 20:39:34 01/22/2024 20:39:34 Pending Labs Inlab 01/22/2024 20:56:17 Lab Inlab 01/22/2024 20:56:17 CT Complete 01/22/2024 20:56:17 01/22/2024 21:10:24 01/22/2024 21:23:59 Pending Labs Cancel 01/22/2024 21:05:01 01/22/2024 21:21:24 Lab Cancel 01/22/2024 21:05:01 01/22/2024 21:21:24 Pending Labs Complete 01/22/2024 21:22:07 01/22/2024 21:22:07 01/22/2024 21:53:10 Lab Complete 01/22/2024 21:22:07 01/22/2024 21:22:07 01/22/2024 21:53:10 Pending Labs Complete 01/22/2024 21:22:55 01/22/2024 21:22:55 01/22/2024 22:13:45 Lab Complete 01/22/2024 21:22:55 01/22/2024 21:22:55 01/22/2024 22:13:45 Discharge Complete 01/22/2024 22:19:41 01/22/2024 22:19:41 01/22/2024 22:19:41 Transfer Complete 01/22/2024 22:19:41 01/22/2024 22:19:41 01/22/2024 22:19:41 ADDRESS: [address] [facility] [id number] PHYS DOC NOTES: MEDICAL INFORMATION: Prescriptions Given: PATIENT EDUCATION INFORMATION: Instructions: Follow up: DIAGNOSIS: Anxiety; Chin laceration Normal [facility] ED Patient Education Noteon 01-22-2024 ED Patient Education Note ED Patient Education Note Normal [facility] ED Patient Summaryon 024 ED Patient Summary ED Patient Summary [address] [address] Patient Discharge Instructions Person Information Name: MOSHE TEE Age: 38 Years Arrival Date: 01/22/2024 19:24:28 Discharge Diagnosis: Anxiety; Chin laceration Primary Care Physician: AKIL HERNANDEZ, SHIRA Marsh Provider Information Primary Provider: Jesus Cordero DO [employer] Judge:Charlene De La Rosa PA-C The exam and treatment you received in the Emergency Department were for an urgent problem and are not intended as complete care. It is important that you follow up with a doctor, nurse practitioner, or physician?s special ed assistant for ongoing care. If your symptoms become worse or you do not improve as expected and you are unable to reach your usual health care provider, you should return to the Emergency Department. We are available 24 hours a day. MOSHE TEE has been given the following list of patient education materials, prescriptions and follow-up instructions: Follow-up Instructions: In the event that this physician does not participate in your insurance network, please consult with your insurance company to find a nearby participating provider. Patient Education Materials: A MESSAGE TO ALL PATIENTS REGARDING OPIOIDS PRESCRIPTION OPIOIDS: WHAT YOU NEED TO KNOW Prescription opioids can be used to help relieve avsxkakn-dp-[id number] pain and are often prescribed following a surgery or injury, or for certain health conditions. These medications can be an important part of the treatment but also come with serious risks. It is important to work with your healthcare provider to make sure you are getting the safest, most effective care. WHAT ARE THE RISKS AND SIDE EFFECTS OF OPIOID USE? Prescription opioids carry serious risks of addiction and overdose, especially with prolonged use. An opioid overdose, often marked by slowed breathing, can cause sudden . The use of prescription opioids can have a number of side effects as well, even when taken as directed: ? Tolerance?meaning you might need to take more of the medication for the same pain relief ? Physical dependence?meaning you have symptoms of withdrawal when a medication is stopped ? Increased sensitivity to pain ? Constipation ? Nausea, vomiting, and dry mouth ? Sleepiness and dizziness ? Confusion ? Depression ? Low levels of testosterone that can result in lower sex drive, energy, and strength ? Itching and sweating RISKS ARE GREATER WITH: ? History of drug misuse, substance use disorder, or overdose ? Mental health conditions (such as depression or anxiety) ? Sleep apnea ? Older age (65 years and older) ? Avoid alcohol while taking prescription opioids. Also, unless specifically advised by your health care provider, medications to avoid include: ? Benzodiazepines (such as Xanax or Valium) ? Muscle relaxants (such as Soma or Flexeril) ? Hypnotics (such as Ambien or Lunesta) ? Other prescription opioids KNOW YOUR OPTIONS Talk to your health care provider about ways to manage your pain that don?t involve prescription opioids. Some of these options may actually work better and have fewer risks and side effects. Options may include: ? Pain relievers such as acetaminophen, ibuprofen, and naproxen ? Some medication that are also used for depression or seizures ? Physical therapy and exercise ? Cognitive behavioral therapy, a psychological, goal-directed approach, in which patients learn how to modify physical, behavioral, and emotional triggers of pain and stress. IF YOU ARE PRESCRIBED OPIOIDS FOR PAIN: ? Never take opioids in greater amounts or more often than prescribed. ? Follow up with your primary health care provider. o Work together to create a plan on how to manage your pain. o Talk about ways to help manage your pain that don?t involve prescription opioids. o Talk about any and all concerns and side effects. ? Help prevent misuse and abuse o Never sell or share prescription opioids. o Never use another person?s prescription opioids. ? Store prescription opioids in a secure place and out of reach of others (this may include visitors, children, friends, and family). ? Safely dispose of unused prescription opioids: Find your community drug take-back program or your pharmacy mail-back program, or flush them down the toilet, following guidance from the Food and Drug Administration (www.fda.gov/Drugs/ ResourcesForYou). ? Visit www.cdc.gov/drugove rdose to learn about the risks of opioids abuse and overdose. ? If you believe you may be struggling with addiction, tell your health critical care physician and ask for guidance or call [facility]?S National Helpline at 1-452-684-RFBS. o Source: US Department of Health and Human Services/Center for Disease Control & Prevention [facility] Medication (more content not included)... Normal [facility] Extra Blueon 01-22-2024 Tube Collected Plasma Yes Invalid Interpretation Code [facility] Comment on above: Performed By: #### 1 [id number] #### [facility] [address] [place] [address] HEMATOLOGYOrdered By: SYSTEM SYSTEM on 01-22-2024 Basophils/100 WBC (Bld) 0.6 % Normal 0.0 - 2.0 % Remisol Heme Basophils/Leukocytes Auto (Bld) [Pure # fraction] 0.1 E9/L Normal 0.0 - 0.2 E9/L [facility] Heme Eosinophils (Bld) [#/Vol] 0.5 E9/L Normal 0.0 - 0.5 E9/L [facility]e Eosinophils/100 WBC (Bld) 4.8 % Normal 0.0 - 8.0 % Remisol Heme Erythrocyte distribution width (RBC) [Ratio] 13.2 % Normal 10.9 - 14.2 % Rem[facility] Heme Hematocrit (Bld) [Volume fraction] 50.8 % High 37.7 - 49.0 % Rem[facility] Heme Hemoglobin (Bld) [Mass/Vol] 17.3 g/dL Normal 13.5 - 17.5 gm/dL [facility] Heme Lymphocytes (Bld) [#/Vol] 3.1 E9/L Normal 1.0 - 4.0 E9/L [facility]e Lymphocytes/100 WBC (Bld) 29.2 % Normal 14.0 - 50.0 % Remisol Heme MCH (RBC) [Entitic mass] 30.3 pg Normal 27.0 - 34.0 pg Remisol Heme MCHC (RBC) [Mass/Vol] 34.1 g/dL Normal 31.4 - 36.0 gm/dL [facility]e MCV (RBC) [Entitic vol] 88.9 fL Normal 80.0 - 100.0 fL [facility] Heme Monocytes (Bld) [#/Vol] 1.3 E9/L High 0.2 - 1.0 E9/L [facility]e Monocytes/100 WBC (Bld) 12.0 % Normal 4.0 - 14.0 % [facility] Heme Neutrophils (Bld) [#/Vol] 5.6 E9/L Normal 2.0 - 7.5 E9/L [facility] Neutrophils/100 WBC (Bld) 53.4 % Normal 36.0 - 75.0 % [facility] Platelet mean volume (Bld) [Entitic vol] 7.5 fL Normal 6.4 - 10.8 fL [facility] Platelets (Bld) [#/Vol] 428.0 E9/L Normal 150.0 - 500.0 E9/L [facility] RBC (Bld) [#/Vol] 5.7 E12/L Normal 4.3 - 5.9 E12/L [facility] WBC corrected for nucl RBC Auto (Bld) [#/Vol] 10.5 E9/L Normal 4.0 - 11.0 E9/L [facility] Lactic Acidon 01-22-2024 Lactic Acid Lvl 1.0 mmol/L Normal 0.5-2.2 [facility] Comment on above: Performed By: #### 2 [id number] #### [facility] [address] [place] [address] Troponinon 01-22-2024 Troponin HS 5.40 pg/mL Low 15.90-38.40 [facility] Comment on above: Result Comment: The 95% CI (Confidence Interval) PPV (Positive Predictive Value) for myocardial infarction in females is 38 pg/mL, in males 51 pg/mL. The results should be used in conjunction with clinical conditions of myocardial infarction. (Access High Sensitivity Troponin I Instructions For Use, Homero Elan, December 2017) Performed By: #### 2 [id number] #### [facility] [address] [place] [address] eGFRon 01-22-2024 eGFR 116 mL/min/1.73 m2 Normal >=59 [facility] Comment on above: Order Comment: Order added by Discern Expert. Performed By: #### 1 [id number] #### [facility] [address] [place] [address] Basic Metabolic Profon 01-18 Anion gap [Moles/Vol] 13 mmol/L Normal 7-16 [facility] Comment on above: Performed By: #### B JEREMIE, CBCWD #### [address] [place] [address] Tow Bar Driver: Uvaldo Sy MD Calcium [Mass/Vol] 9.3 mg/dL Normal 8.6-10.2 [facility] Comment on above: Performed By: #### B JEREMIE, CBCWD #### [facility] [address] [place] [address] Tow Bar Driver: Uvaldo Sy MD Chloride [Moles/Vol] 91 mmol/L Low 98-107 [facility] Comment on above: Performed By: #### B JEREMIE, CBCWD #### [address] [place], [place] [id number] Tow Bar Driver: Uvaldo Sy MD CO2 [Moles/Vol] 27 mmol/L Normal 22-29 [facility] Comment on above: Performed By: #### B JEREMIE, CBCWD #### [facility] [address] [place] [address] Tow Bar Driver: Uvaldo Sy MD Creatinine [Mass/Vol] 0.7 mg/dL Normal 0.70-1.20 [facility] Comment on above: Performed By: #### B JEREMIE, CBCWD #### [address] [address] Tow Bar Driver: Uvaldo Sy MD GFR/1.73 sq M.predicted among non-blacks MDRD (S/P/Bld) [Vol rate/Area] mL/min/{1.73_m2} Normal >60 [facility] Comment on above: Result Comment: These results are not intended for use in patients <18 years of age. eGFR results are calculated without a race factor using the 2020 CKD-EPI equation. Careful clinical correlation is recommended, particularly when comparing to results calculated using previous equations. The CKD-EPI equation is less accurate in patients with extremes of muscle mass, extra-renal metabolism of creatine, excessive creatine ingestion, or following therapy that affects renal tubular secretion. Performed By: #### B JEREMIE, CBCWD #### [address] [address] Tow Bar Driver: Uvaldo Sy MD Glucose [Mass/Vol] 108 mg/dL High 74-99 [facility] Comment on above: Performed By: #### B JEREMIE, CBCWD #### [address] [address] Tow Bar Driver: Uvaldo Sy MD Potassium [Moles/Vol] 3.8 mmol/L Normal 3.5-5.0 [facility] Comment on above: Performed By: #### B JEERMIE, CBCWD #### [address] [address] Tow Bar Driver: Uvaldo Sy MD Sodium [Moles/Vol] 131 mmol/L Low 132-146 [facility] Comment on above: Performed By: #### B JEREMIE, CBCWD #### [address] [address] Tow Bar Driver: Uvaldo Sy MD Urea nitrogen [Mass/Vol] 9 mg/dL Normal 6-20 [facility] Comment on above: Performed By: #### B JEREMIE, CBCWD #### [address] [address] Tow Bar Driver: Uvaldo Sy MD CBC with Diffon 01-19-2024 Abs. Basophil 0.00 k/uL Normal 0.00-0.20 [facility] Comment on above: Performed By: #### B JEREMIE, CBCWD #### [address] [address] Tow Bar Driver: Uvaldo Sy MD Abs.Neutrophil (Seg) 16.06 k/uL High 1.80-7.30 [facility] Comment on above: Performed By: #### B MP, CBCWD #### [address] [address] ( Tow Bar Driver: Uvaldo Sy MD Basophils/100 WBC (Bld) 0 % Normal 0.0-2.0 [facility] Comment on above: Performed By: #### B MP, CBCWD #### [address] [address] ( Tow Bar Driver: Uvaldo Sy MD Eosinophils (Bld) [#/Vol] 0.35 10*3/uL Normal 0.05-0.50 [facility] Comment on above: Performed By: #### B JEREMIE, CBCWD #### [address] [address] ( Tow Bar Driver: Uvaldo Sy MD Eosinophils/100 WBC (Bld) 2 % Normal 0-6 [facility] Comment on above: Performed By: #### B JEREMIE, CBCWD #### [address] [address] ( Tow Bar Driver: Uvaldo Sy MD Lymphocytes (Bld) [#/Vol] 3.18 10*3/uL Normal 1.50-4.00 [facility] Comment on above: Performed By: #### B JEREMIE, CBCWD #### [address] [address] ( Tow Bar Driver: Uvaldo Sy MD Lymphocytes/100 WBC (Bld) 16 % Low 20.0-42.0 [facility] Comment on above: Performed By: #### B MP, CBCWD #### [address] [address] ( Tow Bar Driver: Uvaldo Sy MD Monocytes (Bld) [#/Vol] 0.71 10*3/uL Normal 0.10-0.95 [facility] Comment on above: Performed By: #### B JEREMIE, CBCWD #### [address] [address] Tow Bar Driver: Uvaldo Sy MD Monocytes/100 WBC (Bld) 4 % Normal 2.0-12.0 [facility] Comment on above: Performed By: #### B MP, CBCWD #### [facility] [address] [place] [address] Tow Bar Driver: Uvaldo Sy MD Neutrophil (Seg) 79 % Normal 43.0-80.0 [facility] Comment on above: Performed By: #### B MP, CBCWD #### [facility] [address] [place] [address] Tow Bar Driver: Uvaldo Sy MD RBC morphology finding Nom (Bld) Normal Normal [facility] Comment on above: Performed By: #### B JEREMIE, CBCWD #### [address] [place] [address] Tow Bar Driver: Uvaldo Sy MD Erythrocyte distribution width (RBC) [Ratio] 12.3 % Normal 11.5-15.0 [facility] Comment on above: Performed By: #### B JEREMIE, CBCWD #### [facility] [address] [place] [address] Tow Bar Driver: Uvaldo Sy MD Hematocrit (Bld) [Volume fraction] 46.1 % Normal 37.0-54.0 [facility] Comment on above: Performed By: #### B JEREMIE, CBCWD #### [facility] [address] [place] [address] Tow Bar Driver: Uvaldo Sy MD Hemoglobin (Bld) [Mass/Vol] 15.9 g/dL Normal 12.5-16.5 [facility] Comment on above: Performed By: #### B MP, CBCWD #### [facility] [address] [place] [address] Tow Bar Driver: Uvaldo Sy MD MCH (RBC) [Entitic mass] 30.5 pg Normal 26.0-35.0 [facility] Comment on above: Performed By: #### B MP, CBCWD #### [address] [address] Tow Bar Driver: Uvaldo Sy MD MCHC (RBC) [Mass/Vol] 34.5 g/dL Normal 32.0-34.5 [facility] Comment on above: Performed By: #### B MP, CBCWD #### [address] [address] Tow Bar Driver: Uvaldo Sy MD MCV (RBC) [Entitic vol] 88.5 fL Normal 80.0-99.9 [facility] Comment on above: Performed By: #### B JEREMIE, CBCWD #### [address] [address] Tow Bar Driver: Uvaldo Sy MD Platelet mean volume (Bld) [Entitic vol] 9.8 fL Normal 7.0-12.0 [facility] Comment on above: Performed By: #### B JEREMIE, CBCWD #### [address] [address] Tow Bar Driver: Uvaldo Sy MD Platelets (Bld) [#/Vol] 262 10*3/uL Normal 130-450 [facility] Comment on above: Performed By: #### B JEREMIE, CBCWD #### [address] [address] Tow Bar Driver: Uvaldo Sy MD RBC (Bld) [#/Vol] 5.21 10*6/uL Normal 3.80-5.80 [facility] Comment on above: Performed By: #### B JEREMIE, CBCWD #### [address] [address] Tow Bar Driver: Uvaldo Sy MD WBC (Bld) [#/Vol] 20.3 10*3/uL High 4.5-11.5 [facility] Comment on above: Performed By: #### B , [facility] #### [facility] [address] [place] [address] Tow Bar Driver: Uvaldo Sy MD CT FACIAL BONES W CONTRASTon 01-19-2024 CT FACIAL BONES W CONTRAST EXAMINATION: CT OF THE FACE WITH CONTRAST 01/19/2024 TECHNIQUE: CT of the face was performed with the administration of intravenous contrast. Multiplanar reformatted images are provided for review. Automated exposure control, iterative reconstruction, and/or weight based adjustment of the mA/kV was utilized to reduce the radiation dose to as low as reasonably achievable. COMPARISON: None. HISTORY: ORDERING SYSTEM PROVIDED HISTORY: Facial abscess TECHNOLOGIST PROVIDED HISTORY: Reason for exam:->Facial abscess Additional Contrast?->None Decision Support Exception - unselect if not a suspected or confirmed emergency medical condition->Emergenc y Medical Condition (MA) FINDINGS: There is a loculated fluid collection involving soft tissue of anterior aspect of the mandible measuring approximately 2.4 x 3.8 cm in AP and axial dimension and approximately 3.3 cm in cranial caudal dimension. There is irregular marginal enhancement associated with this lesion with surrounding edema. No bony erosive changes. There is a periapical abscess surrounding the root of left mandibular cuspid (22). There is thickened appearance of gingiva along right and left aspect of the outer margin of the mandible. There are enlarged submental space lymph nodes measuring up to 1.5 cm as well as multiple prominent submandibular space lymph nodes. Submandibular glands are unremarkable. Parotid glands are unremarkable. Nasopharynx and oropharynx are unremarkable. Larynx is unremarkable. Epiglottis is unremarkable. There is prominence of the lingual tonsils. IMPRESSION: 1. Findings above are suggestive of abscess involving the soft tissue along anterior aspect of the mandible measuring 2.4 x 3.8 x 3.3 cm in AP, axial, and cranial caudal dimension. 2. Gingival thickening is seen along right and left aspect of the mandible. 3. Periapical abscess is seen involving left mandibular cuspid (22). 4. Reactive submental and submandibular space lymphadenopathy. Interpreted by: Silvestre Nolen DO Signed by: Silvestre Nolen DO 01/19/24 Final result Normal [facility] Comment on above: Order Comment: Reaso n for exam:->Facial abscess Additional Contrast?->None Decision Support Exception - unselect if not a suspected or confirmed emergency medical condition->Emergency Medical Condition (MA) Covid-19 PCR ([facility])on 07-13 SARS-CoV-2 (COVID-19) RNA NEWTON+probe Ql (Unsp spec) Not detected Normal NOT DETECTED [facility] Comment on above: Result Comment: When diagnostic testing is negative, the possibility of a false negative should be considered in the context of a patient's recent exposures and the presence of clinical signs and symptoms consistent with SARS-CoV-2. This test is not yet approved or cleared by the [place] Food and Drug Administration (FDA). This test was developed by [employer], [place], [place]. The performance characteristics of this test were validated by [facility]. The results are not intended to be used as the sole means for clinical diagnosis or patient management decisions. The [facility] is authorized under Clinical Laboratory Improvement Amendments (CLIA) to perform high- complexity testing. This test is not yet approved or cleared by the [place] FDA. When there are no FDA-approved or cleared tests available, and other criteria are met, FDA can make tests available under an emergency access mechanism called an Emergency Use Authorization (EUA). The EUA for this test is supported by the [place] of Health and Human Service's declaration that circumstances exist to justify the emergency use of in vitro diagnostics for the detection and/or diagnosis of the virus that causes COVID-19. This EUA will remain in effect for the duration of the COVID-19 declaration justifying emergency of IVDs, unless it is terminated or revoked by the FDA (after which the test may no longer be used). Performed By: #### [facility] #### [facility] [address] [address] [address] Verónica Tolliver Acetaminophen Levelon 2017 Acetaminophen <5.0 Invalid Interpretation Code 0.0 - 30.0 mcg/mL [facility] Interpretation and review of laboratory results Normal Invalid Interpretation Code [facility] Alcohol, Medicalon 8 Ethanol 137.0 mg/dL High <10.0 [facility] Basic Metabolic Panelon 09-12 Anion gap 20 mmol/L Invalid Interpretation Code 10 - 20 mmol/L [facility] Bicarbonate (HCO3) 23 mmol/L Invalid Interpretation Code 21 - 32 mmol/L [facility] BUN/Creatinine Ratio 9.4 mg/mg Low 10.0 - 20.0 [facility] Calcium 8.1 mg/dL Low 8.4 - 10.2 mg/dL [facility] Chloride 104 mmol/L Invalid Interpretation Code 98 - 108 mmol/L [facility] Creatinine 0.64 mg/dL Invalid Interpretation Code 0.5 - 1.3 mg/dL [facility] eGFR (non-black) 130 mL/min/{1.73_m2} Invalid Interpretation Code >=60 [facility] eGFR (non-black) The eGFR should be used for monitoring renal function only and not for medication dosing. Invalid Interpretation Code [facility] Glucose 132 mg/dL High 65 - 99 mg/dL [facility] Potassium 3.2 mmol/L Low 3.5 - 5.1 mmol/L [facility] Sodium 144 mmol/L Invalid Interpretation Code 135 - 145 mmol/L [facility] Urea nitrogen 6 mg/dL Low 8 - 25 mg/dL [facility] CBC Auto Differentialon - Basophils 0.05 K/mcL Invalid Interpretation Code 0.00 - 0.30 [facility] Basophils/100 leukocytes 0.6 % Invalid Interpretation Code [facility] Eosinophils 0.23 K/mcL Invalid Interpretation Code 0.00 - 0.50 [facility] Eosinophils/100 leukocytes 2.6 % Invalid Interpretation Code [facility] Erythrocytes (RBC) 0.00 K/mcL Invalid Interpretation Code 0.00 - 0.00 [facility] Erythrocytes (RBC) 4.65 M/mcL Invalid Interpretation Code 4.50 - 5.90 [facility] Hematocrit (HCT) 42.6 % Invalid Interpretation Code 41 - 53 % [facility] Hemoglobin (HGB) 14.5 g/dL Invalid Interpretation Code 13.5 - 17.5 g/dL [facility] IG Absolute 0.02 K/mcL Invalid Interpretation Code 0.00 - 0.30 [facility] IG Percent 0.20 % Invalid Interpretation Code [facility] Interpretation and review of laboratory results Abnormal Invalid Interpretation Code [facility] Lymphocytes 4.27 K/mcL High 0.90 - 4.00 [facility] Lymphocytes/100 leukocytes 48.2 % Invalid Interpretation Code [facility] MCH 31.2 pg Invalid Interpretation Code 26 - 34 pg [facility] MCHC 34.0 g/dL Invalid Interpretation Code 31 - 37 g/dL [facility] MCV 91.6 fL Invalid Interpretation Code 80 - 100 fL [facility] Monocytes 0.53 K/mcL Invalid Interpretation Code 0.30 - 0.90 [facility] Monocytes/100 leukocytes 6.0 % Invalid Interpretation Code [facility] Neutrophils 3.76 K/mcL Invalid Interpretation Code 1.70 - 7.00 [facility] Neutrophils/100 leukocytes 42.4 % Invalid Interpretation Code [facility] Nucleated erythrocytes/100 erythrocytes 0.0 % Invalid Interpretation Code [facility] Platelet mean volume (PMV) 9.7 fL Invalid Interpretation Code 9 - 15.5 fL [facility] Platelets 242 K/mcL Invalid Interpretation Code 150 - 400 [facility] RDW-CA 12.8 % Invalid Interpretation Code 11.6 - 14.8 % [facility] WBC (Leukocytes) 8.86 K/mcL Invalid Interpretation Code 4.50 - 11.00 [facility] CBC and Differentialon 10-04 Creatinine The following orders were created for panel order CBC and Differential. Procedure Abnormality Status --------- ------ CBC Auto Differential[[id number]] Abnormal Final result Please view results for these tests on the individual orders. Invalid Interpretation Code [facility] CT Head Or Brain Without Con traston 10-04-2017 CT Head Or Brain Without Contrast EXAMINATION: CT OF THE HEAD WITHOUT CONTRAST 10/04/2017 TECHNIQUE: CT of the head was performed without the administration of intravenous contrast. Dose modulation, iterative reconstruction, and/or weight based adjustment of the mA/kV was utilized to reduce the radiation dose to as low as reasonably achievable. COMPARISON: None. HISTORY: ORDERING SYSTEM PROVIDED HISTORY: Altered Mental Status; TECHNOLOGIST PROVIDED HISTORY: Reason for Exam: Altered Mental Status Injury/Trauma Acuity: Acute Type of Encounter: Initial Mechanism of Injury: Altered Mental Status ORDERING SYSTEM PROVIDED DIAGNOSIS CODES: T40.601A Opiate overdose, accidental or unintentional, initial encounter FINDINGS: BRAIN/VENTRICLES: No acute intracranial hemorrhage or extraaxial fluid collection. Chacon-white differentiation is maintained. No evidence of mass, mass effect or midline shift. No evidence of hydrocephalus. ORBITS: The visualized portion of the orbits demonstrate no acute abnormality. SINUSES: The visualized paranasal sinuses and mastoid air cells demonstrate no acute abnormality. SOFT TISSUES/SKULL: No acute abnormality of the visualized skull or soft tissues. Invalid Interpretation Code [facility] CT Head Or Brain Without Contrast Interface, Rad In [facility] Speechq - 10/04/2017 3:54 AM EDT EXAMINATION: CT OF THE HEAD WITHOUT CONTRAST 10/04/2017 TECHNIQUE: CT of the head was performed without the administration of intravenous contrast. Dose modulation, iterative reconstruction, and/or weight based adjustment of the mA/kV was utilized to reduce the radiation dose to as low as reasonably achievable. COMPARISON: None. HISTORY: ORDERING SYSTEM PROVIDED HISTORY: Altered Mental Status; TECHNOLOGIST PROVIDED HISTORY: Reason for Exam: Altered Mental Status Injury/Trauma Acuity: Acute Type of Encounter: Initial Mechanism of Injury: Altered Mental Status ORDERING SYSTEM PROVIDED DIAGNOSIS CODES: T40.601A Opiate overdose, accidental or unintentional, initial encounter FINDINGS: BRAIN/VENTRICLES: No acute intracranial hemorrhage or extraaxial fluid collection. Chacon-white differentiation is maintained. No evidence of mass, mass effect or midline shift. No evidence of hydrocephalus. ORBITS: The visualized portion of the orbits demonstrate no acute abnormality. SINUSES: The visualized paranasal sinuses and mastoid air cells demonstrate no acute abnormality. SOFT TISSUES/SKULL: No acute abnormality of the visualized skull or soft tissues. IMPRESSION: No acute intracranial abnormality. Workstation ID: [id number] Invalid Interpretation Code [facility] CT Head Or Brain Without Contrast No acute intracranial abnormality. Workstation ID: [id number] Invalid Interpretation Code [facility] Drugs of Abuse Screen, Urine on 10-04-2017 Amphetamine Screen, Urine None Detected Invalid Interpretation Code None Detected [facility] Cocaine, Screen Urine None Detected Invalid Interpretation Code None Detected [facility] Interpretation and review of laboratory results Normal Invalid Interpretation Code [facility] Methadone Screen, Urine None Detected Invalid Interpretation Code None Detected [facility] Opiate Screen, Urine None Detected Invalid Interpretation Code None Detected [facility] Oxycodone Screen, Urine None Detected Invalid Interpretation Code None Detected [facility] Urine, barbiturates presence None Detected Invalid Interpretation Code None Detected [facility] Urine, benzodiazepines presence None Detected Invalid Interpretation Code None Detected [facility] Urine, cannabinoids presence None Detected Invalid Interpretation Code None Detected [facility] Drugs of Abuse Screen, Urine Screen results should be used for treatment purposes only. Invalid Interpretation Code [facility] EKGon 10-04-2017 EKG Ordered by an unspecified provider. Invalid Interpretation Code [facility] Gold Topon 10-04-2017 Extra Tube Hold for add-ons. Invalid Interpretation Code [facility] [place] Drawon 10-04-2017 Creatinine The following orders were created for panel order [place] Draw. Procedure Abnormality Status --------- ------ Gold Top[[id number]] Final result Light Blue Top[[id number]] Final result Araujo Top[[id number]] Final result Please view results for these tests on the individual orders. Invalid Interpretation Code [facility] Salicylate Levelon 8 Salicylates mg/dL Low 10 - 20 mg/dL [facility] Urinalysison 10-04-2017 Bilirubin, Urine Negative Invalid Interpretation Code Negative [facility] Blood, Urine Small Abnormal Negative [facility] Interpretation and review of laboratory results Abnormal Invalid Interpretation Code [facility] Nitrite, Urine Negative Invalid Interpretation Code Negative [facility] Urine, bacteria in sediment None Seen Invalid Interpretation Code None Seen /hpf [facility] Urine, clarity Hazy Abnormal Clear [facility] Urine, color Yellow Invalid Interpretation Code Colorless, Yellow [facility] Urine, glucose presence Negative Invalid Interpretation Code Negative mg/dL [facility] Urine, ketones presence Negative Invalid Interpretation Code Negative mg/dL [facility] Urine, leukocyte esterase presence Negative Invalid Interpretation Code Negative [facility] Urine, pH 5.0 [pH] Invalid Interpretation Code 5.0 - 7.0 [facility] Urine, protein Negative Invalid Interpretation Code Negative mg/dL [facility] Urine, specific gravity 1.013 1 Invalid Interpretation Code 1.005 - 1.025 [facility] Urine, urobilinogen <2.0 Invalid Interpretation Code <2.0 mg/dL [facility] Urinalysis Microscopic examination is performed on all urinalysis samples and only positive findings are reported. The test for blood on the chemical analytic portion of urinalysis may also be positive due to hemoglobinuria and myoglobinuria and if red blood cells are present they are quantified by microscopic examination. Invalid Interpretation Code [facility] Vital Signs Date Time Vital Sign Value Performing Clinician Facility 01-22-2024 19:40-0400 Body temperature 97.88 [degF] [employer] [facility] 01-22-2024 19:40-0400 Diastolic blood pressure 96 mm[Hg] [employer] [facility] 01-22-2024 19:40-0400 Heart rate 113 /min Jesus Gil [facility] 01-22-2024 19:40-0400 Respiratory rate 18 /min Jesus Gil [facility] 01-22-2024 19:40-0400 SaO2% (BldA) [Mass fraction] 98 % Jesus Gil [facility] 01-22-2024 19:40-0400 Systolic blood pressure 148 mm[Hg] Jesus Gil [facility] 10-04-2017 07:02-0400 Pulse Oximetry 95 % Hillaryilana Wagner [facility] 10-04-2017 06:49-0400 BP Diastolic 90 mm[Hg] Hillaryilana Wagner [facility] 10-04-2017 06:49-0400 BP Systolic 114 mm[Hg] [facility] 10-04-2017 05:09-0400 Pulse (Heart Rate) 101 /min Hillary [facility] 10-04-2017 01:55-0400 Respiratory Rate 13 /min [facility] 10-04-2017 00:59-0400 BMI (Body Mass Index) 23.01 kg/m2 [facility] 10-04-2017 00:59-0400 Body Temperature 98.01 [degF] Hillary Wagner [facility] 10-04-2017 00:59-0400 Height 180.3 cm Hillary [facility] 10-04-2017 00:59-0400 Weight 74.84 kg Hillaryilana Wagner [facility] Encounters Encounter Date Encounter Type Care Provider Facility Start: 01-22-2024 End: 01-22-2024 Emergency department patient visit PHYSICIAN TAMIKA [facility] Work Phone: Start: 01-19-2024 End: 01-19-2024 Emergency department patient visit Physician Tamika [facility] Start: 08-01-2021 End: 08-02-2021 ambulatory [facility] Facility: Start: 01-27-2021 End: 01-27-2021 Emergency department patient visit GERALDO STRICKLAND Facility:[facility] Start: 12-27-2020 ambulatory GENOVEVA HAND Facility:H 1 Start: 09-16-2018 Patient encounter procedure SUSAN MAJORLE Facility:[id number] Start: 09-15-2018 Patient encounter procedure Marisa Pelayo Pacer Facility:[id number] Start: 09-14-2018 Patient encounter procedure Marisa Pelayo Pacer Facility:[id number] Start: 09-13-2018 Patient encounter procedure SUSAN MAJORLE Facility:[id number] Start: 09-12-2018 Patient encounter procedure SUSAN MAJORLE Facility:[id number] Start: 09-11-2018 Patient encounter procedure SUSAN GOMEZISLE Facility:[id number] Start: 09-10-2018 Patient encounter procedure SUSAN GOMEZISLE Facility:[id number] Start: 09-09-2018 Patient encounter procedure SUSAN MAJORLE Facility:[id number] Start: 09-08-2018 Patient encounter procedure SUSAN MAJORLE Facility:[id number] Start: 09-07-2018 Patient encounter procedure SUSAN GMOEZISLE Facility:[id number] Start: 09-06-2018 Patient encounter procedure SUSAN MAJORLE Facility:[id number] Start: 09-05-2018 Patient encounter procedure SUSAN MAJORLE Facility:[id number] Start: 09-04-2018 Patient encounter procedure SUSAN Trace GOMEZCHRISTINA Facility:[id number] Start: 09-03-2018 Patient encounter procedure SUSAN MAJORLE Facility:[id number] Start: 09-02-2018 Patient encounter procedure SUSAN MAJORLE Facility:[id number] Start: 09-01-2018 Patient encounter procedure Marisa Pelayo Pacer Facility:[id number] Start: 08-31-2018 Patient encounter procedure Marisa Pelayo Pacer Facility:[id number] Start: 08-30-2018 Patient encounter procedure SUSAN MAJORLE Facility:[id number] Start: 08-29-2018 Patient encounter procedure SUSAN GOMEZISLE Facility:[id number] Start: 08-28-2018 Patient encounter procedure SUSAN GOMEZISLE Facility:[id number] Start: 08-27-2018 Patient encounter procedure SUSAN MAJORLE Facility:[id number] Start: 08-26-2018 Patient encounter procedure SUSAN MAJORLE Facility:[id number] Start: 08-25-2018 Patient encounter procedure SUSAN GOMEZISLE Facility:[id number] Start: 08-24-2018 Patient encounter procedure SUSAN GOMEZISLE Facility:[id number] Start: 08-23-2018 Patient encounter procedure SUSAN VASQUEZ Facility:[id number] Start: 08-22-2018 Patient encounter procedure SUSAN VASQUEZ Facility:[id number] Start: 08-21-2018 Patient encounter procedure SUSAN VASQUEZ Facility:[id number] Start: 08-20-2018 Patient encounter procedure SUSAN VASQUEZ Facility:[id number] Start: 08-19-2018 Patient encounter procedure SUSAN VASQUEZ Facility:[id number] Start: 08-18-2018 Patient encounter procedure SUSAN VASQUEZ Facility:[id number] Start: 08-17-2018 Patient encounter procedure SUSAN VASQUEZ Facility:[id number] Start: 08-16-2018 Patient encounter procedure SUSAN VASQUEZ Facility:[id number] Start: 08-15-2018 Patient encounter procedure SUSAN VASQUEZ Facility:[id number] Start: 08-14-2018 Patient encounter procedure SUSAN VASQUEZ Facility:[id number] Start: 08-13-2018 Patient encounter procedure SUSAN VASQUEZ Facility:[id number] Start: 08-12-2018 Patient encounter procedure SUSAN VASQUEZ Facility:[id number] Start: 08-11-2018 Patient encounter procedure SUSAN VASQUEZ Facility:[id number] Start: 08-10-2018 Patient encounter procedure SUSAN VASQUEZ Facility:[id number] Start: 08-09-2018 Patient encounter procedure SUSAN VASQUEZ Facility:[id number] Start: 04-09-2018 Patient encounter procedure JERARDO EMERY Facility:[id number] Start: 04-08-2018 Patient encounter procedure JERARDO EMERY Facility:[id number] Start: 04-07-2018 Patient encounter procedure Marisa Gita Pacer Facility:[id number] Start: 04-06-2018 Patient encounter procedure Marisa Gita Pacer Facility:[id number] Start: 04-05-2018 Patient encounter procedure JERARDO EMERY Facility:[id number] Start: 04-04-2018 Patient encounter procedure Marisa Gita Pacer Facility:[id number] Start: 04-03-2018 Patient encounter procedure JERARDO EMERY Facility:[id number] Start: 04-02-2018 Patient encounter procedure JERARDO EMERY Facility:[id number] Start: 10-04-2017 End: 10-04-2017 Emergency department patient visit HILLARY WAGNER [facility] Start: 10-04-2017 End: 10-04-2017 Emergency department patient visit Hillary Wagner Work Phone: [facility] Emergency Department Procedures Date Procedure Procedure Detail Performing Clinician Start: 10-04-2017 End: 10-04-2017 Electrocardiogram Provider Not In Syst em Plan of Treatment Date Care Activity Detail Author Start: 01-12-2018 Influenza vaccination SEQUENTI AL INFLUENZA VACCINE (Season Ended) [facility] Start: 1985 Tetanus vaccination TETANUS EVERY 10 YR [facility] Patient referral [facility] Work Phone: Payers Date Payer Category Payer Self-pay 2017 Unknown [id number] 2017 Private Health Insurance [id number] 1985 Unknown [id number] 2.16. 840.1.320475.3.579.2.356 1986 Unknown [id number] 2.16. 840.1.459837.3.579.2.356 1986 Unknown [id number] 2.16. 840.1.987871.3.579.2.356 1986 Unknown [id number] 2.16. 840.1.344986.3.579.2.356 1986 Unknown [id number] 2.16. 840.1.297538.3.579.2.356 1986 Unknown [id number] 2.16. 840.1.113316.3.579.2.356 1986 Unknown [id number] 2.16. 840.1.926345.3.579.2.356 1986 Unknown [id number] 2.16. 840.1.966457.3.579.2.356 1986 Unknown [id number] 2.16. 840.1.303911.3.579.2.356 1986 Unknown [id number] 2.16. 840.1.758581.3.579.2.356 1986 Unknown [id number] 2.16. 840.1.622889.3.579.2.356 1986 Unknown [id number] 2.16. 840.1.119329.3.579.2.356 1986 Unknown [id number] 2.16. 840.1.928538.3.579.2.356 1986 Unknown [id number] 2.16. 840.1.852042.3.579.2. 1986 Unknown [id number] 2.16. 840.1.027936.3.579.2.356 1986 Unknown [id number] 2.16. 840.1.486169.3.579.2. 1986 Unknown [id number] 2.16. 840.1.432565.3.579.2.356 1986 Unknown [id number] 2.16. 840.1.974073.3.579.2.356 1986 Unknown [id number] 2.16. 840.1.604662.3.579.2.356 1986 Unknown [id number] 2.16 840.1.681017.3.579.2. 1986 Unknown [id number] 2.16. 840.1.852551.3.579.2.356 1986 Unknown [id number] 2.16. 840.1.636956.3.579.2.356 1986 Unknown [id number] 2.16. 840.1.929638.3.579.2.356 1986 Unknown [id number] 2.16. 840.1.402004.3.579.2.356 1986 Unknown [id number] 2.16. 840.1.101675.3.579.2.356 1986 Unknown [id number] 2.16. 840.1.506622.3.579.2.356 1986 Unknown [id number] 2.16. 840.1.197377.3.579.2.356 1986 Unknown [id number] 2.16. 840.1.736558.3.579.2.356 1986 Unknown [id number] 2.16. 840.1.271857.3.579.2.356 1986 Unknown [id number] 2.16. 840.1.367873.3.579.2. 1986 Unknown [id number] 2.16. 840.1.336572.3.579.2.356 1986 Unknown [id number] 2.16 840.1.176908.3.579.2.356 1986 Unknown [id number] 2.16. 840.1.773700.3.579.2.356 1986 Unknown [id number] 2.16 840.1.647668.3.579.2. 1986 Unknown [id number] 2.16 840.1.704485.3.579.2. 1986 Unknown [id number] 2.16 840.1.525728.3.579.2. 1986 Unknown [id number] 2.16 840.1.508354.3.579.2.356 1986 Unknown [id number] 2.16 840.1.522353.3.579.2.356 1986 Unknown [id number] 2.16 840.1.353459.3.579.2. 1986 Unknown [id number] 2.16 840.1.801139.3.579.2. 1986 Unknown [id number] 2.16. 840.1.886097.3.579.2.356 1986 Unknown [id number] 2.16. 840.1.507728.3.579.2.356 1986 Unknown [id number] 2.16 840.1.784933.3.579.2.356 1986 Unknown [id number] 2.16 840.1.386510.3.579.2.356 1986 Unknown [id number] 2.16. 840.1.433811.3.579.2.356 1986 Unknown [id number] 2.16. 840.1.568824.3.579.2.356 1986 Unknown [id number] 2.16. 840.1.958080.3.579.2.356 1986 Unknown [id number] 2.16. 840.1.002275.3.579.2.356 1986 Unknown [id number] 2.16. 840.1.696290.3.579.2.356 1986 Unknown [id number] 2.16.8 40.1.559753.3.579.2.902 1986 Unknown [id number] 2.16.8 40.1.878819.3.579.2.647 1986 Unknown [id number] 2.16.84 0.1.413780.3.579.2.593 1986 Unknown [id number] 2.16.84 0.1.848984.3.579.2.593 1986 Unknown [id number] 2.16.8 40.1.388025.3.579.2.727 1986 Unknown [id number] 2.16.8 40.1.047493.3.579.2.727 1986 Unknown [id number] 2.16. 840.1.911832.3.579.2.204 1986 Unknown [id number] 2.16. 840.1.883214.3.579.2.204 1959 Self-pay [id number] 1959 Unknown [id number] Private Health Insurance [id number] Unknown [id number] Unknown [id number] Unknown [id number] Unknown [id number] 2.16.8 40.1.117586.3.579.2.531 Social History Date Type Detail Facility Start: 10-04-2017 Tobacco smoking stat us [facility] Current every day smoker [facility] History of tobacco use Cigarette Smoker [facility] Start: 10-04-2017 Cigarettes smoked current (pack per day) - Reported [facility] Sex Assigned At Not on file [facility] Start: 1985 Sex Assigned At Male F [facility] Tobacco [facility] Comment on above: daily smoker Tobacco smoking status No Smokin g Status Entered [facility] Sex Assigned At Male [facility] Functional Status Date Assessment Result Facility 01-22-2024 Functional Status N/A [facility] Clinical Note 01-30-2024 Note Date & Type Note Facility 01-30-2024 Note Microbiology PROCEDURE: Blood Culture Charcoal [R1] SOURCE: Blood BODY SITE: Arm L COLLECTED DATE/TIME: 01/22/2024 21:13 EDT RECEIVED DATE/TIME: 01/22/2024 21:39 EDT START DATE/TIME: 01/22/2024 21:39 EDT FREE TEXT SOURCE: Charlene De La Rosa PA-C, PA-C, Rachel L. FINAL REPORTS Final Report [] Verified Date/Time: 01/30/2024 00:00 EDT No growth at 7 days. Performing Locations R1: This test was performed at: [facility], [address] [place] [address], [facility] , , [facility] Comment on above: Performed By: #### 1 [id number] #### [facility] [address] [place] [address] Clinical Note 01-30-2024 Note Date & Type Note Facility 01-30-2024 Note Microbiology PROCEDURE: Blood Culture Charcoal [R1] SOURCE: Blood BODY SITE: Arm R COLLECTED DATE/TIME: 01/22/2024 21:16 EDT RECEIVED DATE/TIME: 01/22/2024 21:39 EDT START DATE/TIME: 01/22/2024 21:39 EDT FREE TEXT SOURCE: Charlene De La Rosa PA-C. Estrella RICK, Charlene Medina. FINAL REPORTS Final Report [] Verified Date/Time: 01/30/2024 00:00 EDT No growth at 7 days. Performing Locations R1: This test was performed at: [facility], [address] [place] [address], [id number] , [place], [facility] Comment on above: Performed By: #### 1 [id number] #### [facility] [address] [place] [id number] Evaluation + Plan note 01-22-2024 Note Date & Type Note Facility 01-22-2024 Evaluation + Plan note Diagnostic Tests PendingBlood Culture Charcoal 01/22/24Blood Culture Charcoal 01/22/24 [facility] Evaluation note Note Date & Type Note Facility Evaluation note No assessment information [facility] Work Phone: Hospital course Narrative Note Date & Type Note Facility Hospital course Narrative No data available for this section [facility] Hospital Discharge instructions Note Date & Type Note Facility Hospital Discharge instructions No data available for this section [facility] Progress note Note Date & Type Note Facility Progress note No data available for this section [facility] Discharge Instructions * Cat Morel, [facility] - 10/04/2017 Formatting of this note may be different from the original. Altered Mental Status: Care Instructions Your Care Instructions Altered mental status is a change in how well your brain is working. As a result, you may be confused, be less alert than usual, or act in odd ways. This may include seeing or hearing things that aren't really there (hallucinations). A mental status change has many possible causes. For example, it may be the result of an infection,an imbalance of chemicals in the body, or a chronic disease such as diabetes or COPD. It can also be caused by things such as a head injury, taking certain medicines, or using alcohol or drugs. The doctor may do tests to look for the cause. These tests may include urine tests, blood tests, and imaging tests such as a CT scan. Sometimes a clear cause isn't found. But tests can help the doctor rule out a serious cause of your symptoms. A change in mental status can be scary. But mental status will often return to normal when the cause is treated. So it is important to get any follow-up testing or treatment the doctor has suggested. The doctor has checked you carefully, but problems can develop later. If you notice any problems ornew symptoms, get medical treatment right away. Follow-up care is a zhang part of your treatment and safety. Be sure to make and go to all appointments, and call your doctor if you are having problems. It's also a good idea to know your test resultsand keep a list of the medicines you take. How can you care for yourself at home? Be safe with medicines. Take your medicines exactly as prescribed. Call your doctor if you think you are having a problem with your medicine. Have another adult stay with you until you are better. This can help keep you safe. Ask that personto watch for signs that your mental status is getting worse. When should you call for help? Call 911 anytime you think you may need emergency care. For example, call if: ? You passed out (lost consciousness). ?Call your doctor now or seek immediate medical care if: ? Your mental status is getting worse. ? You have new symptoms, such as a fever, chills, or shortness of breath. ? You do not feel safe. ?Watch closely for changes in your health, and be sure to contact your doctor if: ? You do not get better as expected. Where can you learn more? Log into your personal health record on https://M[employer]st.Peer60 and enter J452 in the Education box to learn more about Altered Mental Status: Care Instructions. Current as of: February 19, 2017 Content Version: [id number] [employer]. Care instructions adapted under license by your healthcare professional. If you have questions about a medical condition or this instruction, always ask your healthcare professional. [employer] disclaims any warranty or liability for your use of this information. in this encounter Assessments Diagnosis Altered mental status, unspe cified altered mental status type - Primary Summary Purpose Family History No Family History Records FoundNo Family History Records FoundNo Family History Records FoundNo Family History Records FoundNo Family History Records Found No data available for this section No Family History Records FoundNo Family History Records FoundNo Family History Records FoundNo Family History Records FoundNo Family History Records FoundNo Family History Records FoundNo Family History Records FoundNo Family History Records FoundNo Family History Records FoundNo Family History Records FoundNo Family History Records Found Advance Directives No Advanced Directives Records Found Advance Directive Response Recorded Date/ Time Advance Directives No June 15, 2021 4:23pm Chief Complaint and Reason for Visit Chief Complaint loss of body muscle occasionally Additional Source Comments ED Notes - Marlee Lopez RN - 10/04/2017 8:39 AM EDTED Notes - Marlee Lopez RN - 10/04/2017 8:30 AM EDTED Notes - Marlee Lopez RN - 10/04/2017 8:18 AM EDT Miscellaneous Notes (unrecog nized section and content) DC instructions and when to seek medical attention reviewed with patient. Pt denies any questions or needs at this time. Pt ambulated with steady gait to ED lobby. Pt calling uber for ride home Pt awake and alert in room. Pt ambulates with steady gait Pt sleeping in room in blue gown attached to cont SpO2. respirs regular/easy. Breakfast tray ordered. ED Attestation: I have reviewed the non physician practitioner's documentation, personally taken the patient's history, performed an exam and agree with the physical findings, clinical impression and management plan Formatting of this note may be different from the original. ED PROVIDER NOTE [facility] NAME: Moshe Tee AGE: 32 y.o. : 1985 VISIT DATE: 10/04/2017 CSN: [id number] PCP: Physician No Chief Complaint Patient presents with Drug Overdose Pt arrives to the ER after an apparent overdose. He was found slumped over in his car by police and had to be revived with Narcan. 2 doses of narcan were used. He arrives to the ER still drowsy but he is able to answer questions. He is denying any drug use. He states that he drank and that was all. He states he used in the past but he hasn't used any drugs tonight. He denies any SI/HI. He has no physical c/o at this time. CPR was not needed [employer]. There was no damage to the car. He was sitting still. History reviewed. No pertinent past medical history. History reviewed. No pertinent surgical history. History reviewed. No pertinent family history. Social History Social History Marital status: Single Spouse name: N/A Number of children: N/A Years of education: N/A Occupational History Not on file. Social History Main Topics Smoking status: Current Every Day Smoker Packs/day: 0.25 Types: Cigarettes Smokeless tobacco: Never Used Alcohol use Yes Comment: socially, drank 1 beer pilot captain Drug use: No Comment: denies 10/04/17 Sexual activity: Not on file Other Topics Concern Not on file Social History Narrative No narrative on file Previous Medications UNABLE TO FIND seroquel . No Known Allergies Review of Systems Constitutional: Negative. Negative for fever. Brought in after an apparent overdose. HENT: Negative. Negative for trouble swallowing. Eyes: Negative. Respiratory: Negative. Negative for chest tightness and shortness of breath. Cardiovascular: Negative. Negative for chest pain. Gastrointestinal: Negative. Negative for abdominal pain and nausea. Endocrine: Negative. Genitourinary: Negative. Negative for dysuria. Musculoskeletal: Negative. Negative for arthralgias. Skin: Negative. Negative for wound. Allergic/Immunologic: Negative. Neurological: Negative. Hematological: Negative. Does not bruise/bleed easily. Psychiatric/Behavioral: Apparent drug overdose Positives and pertinent negatives as per HPI. All other systems were reviewed and are negative. Patient Vitals for the past 24 hrs: BP Temp Temp src Pulse Resp SpO2 Height Weight 10/04/17 0155 - - - 70 13 99 % - - 10/04/17 0120 119/70 - - 76 18 94 % - - 10/04/17 0059 118/76 98 F (36.7 C ) Oral 84 16 93 % 5' 11 74.8 kg (165 lb) Physical Exam Constitutional: He appears well-developed and well-nourished. No distress. HENT: Head: Normocephalic and atraumatic. Eyes: Conjunctivae and EOM are normal. Pupils are equal, round, and reactive to light. Neck: Normal range of motion. Cardiovascular: Normal rate, regular rhythm, normal heart sounds and intact distal pulses. No murmur heard. Pulmonary/Chest: Effort normal and breath sounds normal. No respiratory distress. He has no wheezes. Abdominal: Soft. Bowel sounds are normal. He exhibits no distension. There is no tenderness. Musculoskeletal: Normal range of motion. Neurological: He is alert. No cranial nerve deficit. Pt is still drowsy. He is able to be awakened and will answer questions but he drifts off quickly. Skin: Skin is warm and dry. Capillary refill takes less than 2 seconds. Psychiatric: He has a normal mood and affect. His behavior is normal. Pt denies drug use but he was revived with Narcan. He denies any SI/HI Nursing note and vitals reviewed. Laboratory & Radiographic Imaging (if done): Results for orders placed or performed during the hospital encounter of 10/04/17 Basic Metabolic Panel Result Value Ref Range Sodium 144 135 - 145 mmol/L Potassium 3.2 (L) 3.5 - 5.1 mmol/L Chloride 104 98 - 108 mmol/L Bicarbonate 23 21 - 32 mmol/L Anion Gap 20 10 - 20 mmol/L Glucose 132 (H) 65 - 99 mg/dL BUN 6 (L) 8 - 25 mg/dL Creatinine 0.64 0.50 - 1.30 mg/dL eGFR 130 >=60 mL/min/1.73 m2 BUN/Creatinine Ratio 9.4 (L) 10.0 - 20.0 Calcium 8.1 (L) 8.4 - 10.2 mg/dL Alcohol, Medical Result Value Ref Range Alcohol (Medical) 137.0 (H) <10.0 mg/dL Salicylate Level Result Value Ref Range Salicylate <2.6 (L) 10.0 - 20.0 mg/dL Acetaminophen Level Result Value Ref Range Acetaminophen <5.0 0.0 - 30.0 mcg/mL CBC Auto Differential Result Value Ref Range WBC 8.86 4.50 - 11.00 K/mcL RBC 4.65 4.50 - 5.90 M/mcL Hemoglobin 14.5 13.5 - 17.5 g/dL Hematocrit 42.6 41.0 - 53.0 % MCV 91.6 80.0 - 100.0 fL MCH 31.2 26.0 - 34.0 pg MCHC 34.0 31.0 - 37.0 g/dL Platelets 242 150 - 400 K/mcL RDW - CV 12.8 11.6 - 14.8 % MPV 9.7 9.0 - 15.5 fL Neutrophils 42.4 % Lymphocytes 48.2 % Monocytes 6.0 % Eosinophils 2.6 % Basophils 0.6 % IG Percent 0.20 % Neutrophils Abs 3.76 1.70 - 7.00 K/mcL Lymphocytes Abs 4.27 (H) 0.90 - 4.00 K/mcL Monocytes Abs 0.53 0.30 - 0.90 K/mcL Eosinophils Abs 0.23 0.00 - 0.50 K/mcL Basophils Abs 0.05 0.00 - 0.30 K/mcL IG Absolute 0.02 0.00 - 0.30 K/mcL Nucleated RBC 0.0 % Nucleated RBC Abs 0.00 0.00 - 0.00 K/mcL CT Head Or Brain Without Contrast (Results Pending) Procedures KHADIJAH Tee is a 32 y.o. male who presents with a chief complaint of Chief Complaint Patient presents with Drug Overdose . The patient's vitals, lab and/or radiology results are as above. Pt arrives to the ER after being revived with narcan. He was found slumped over in his car. He denies drug use but had good response to narcan. He is on a medical hold at this time until he is more alert and can be reassessed. As a result,These allergies were reviewed: No Known Allergies. And the following medications were administered: Medications - No data to display. Patient was reassessed and dispositioned. . . Clinical Impression: SNOMED CT(R) 1. Opiate overdose, accidental or unintentional, initial encounter OVERDOSE OF OPIATE Follow-up Information Follow-up information has not been specified. Contact information for after-discharge care Follow-up information has not been specified. New Prescriptions No medications on file (Please note that portions of this note may have been completed with a voice recognition software. Efforts were made to correct any errors, but occasionally words are mis-transcribed.) Cat Morel, JUAN 10/04/17 0316 Bed: 42 Expected date: Expected time: Means of arrival: Comments: Hold for [address] scan with pt at this time This RN assumes care. Pt appears somnolent and subdued. States he feels like he does not belong here right now. Updated pt on plan of care and instructed pt on the expectations of care today. Pt in a blue gown and on 2L nasal cannula at this time. Continuous monitoring in place for pt safety. Pt changed into blue gown without incident. Belongings confiscated. Continuous monitoring implemented at this time. POC explained. Pt is calm and cooperative. Pt denies any drug use. States he had one beer [employer]. Pt found passed out in his vehicle, given 2mg narcan via MAD with good effect. Pt was given an additional 2mg. Pt arrives in NAD, GCS 15, calm and cooperative. Bed: 29 Expected date: Expected time: Means of arrival: Comments: M1.OD.Rimerin this encounter (unrecognized sect ion and content) No Status Records FoundNo Status Records FoundNo Status Records FoundNo Status Records FoundNo Status Records FoundNo Status Records FoundNo Status Records FoundNo Status Records FoundNo Status Records FoundNo Status Records FoundNo Status Records FoundNo Status Records FoundNo Status Records FoundNo Status Records FoundNo Status Records FoundNo Status Records Found INFORMATION SOURCE (unrecogn ized section and content) DATE CREATED AUTHOR 09/30/2018 [facility] DATE CREATED AUTHOR AUTHOR'S ORGANIZ ATION 10/01/2018 [facility] DATE CREATED AUTHOR AUTHOR'S ORGANIZ ATION 02/16/2019 [facility] DATE CREATED AUTHOR AUTHOR'S ORGANIZ ATION 04/29/2021 [facility] DATE CREATED AUTHOR AUTHOR'S ORGANIZ ATION 08/02/2021 [facility] DATE CREATED AUTHOR AUTHOR'S ORGANIZ ATION 01/24/[address] [facility] DATE CREATED AUTHOR AUTHOR'S ORGANIZ ATION 01/24/2024 [facility] DATE CREATED AUTHOR AUTHOR'S ORGANIZ ATION 02/01/2024 [facility] DATE CREATED AUTHOR AUTHOR'S ORGANIZ ATION 02/24/2024 [facility] Care Teams (unrecognized sec tion and content) Team Status: Active Member Role Status Dates PHYSICIAN NO FAMILY Primary Care Provider Active Team Status: Inactive Member Role Status Dates PHYSICIAN NO FAMILY Primary Care Provider Active Start: January 22, 2024 End: January 22, 2024 Sloan Jc DO Emergency Provider Active St art: January 22, 2024 End: January 22, 2024 Goals (unrecognized section and content) Goals may be documented in a n alternate section No data available for this section FOR RECORDS PERTAINING TO PATIENTS WHO ARE OR HAVE BEEN ENROLLED IN A CHEMICAL DEPENDENCY/SUBSTANCEABUSE PROGRAM, SOME INFORMATION MAY BE OMITTED. This clinical summary was aggregated from multiple sources. Caution should be exercised in using it in the provision of clinical care. This summary normalizes information from multiple sources, and as a consequence, information in this document may materially change the coding, format and clinical context of patient data. In addition, data may be omitted in some cases. CLINICAL DECISIONS SHOULD BE BASED ON THE PRIMARY CLINICAL RECORDS. [facility]. provides no warranty or guarantee of the accuracy or completeness of information in this document.
[2024-08-13 11:25] LABS: Alanine Aminotransferase 29 U/L (16-63); Albumin Globulin Ratio 1.1; Albumin Level 3.9 g/dL (3.4-5.0); Alkaline Phosphatase 89 U/L (46-116); Anion Gap 13.6; Aspartate Amino Transferase 26 U/L (15-37); BUN Creatinine Ratio 10.5; Bilirubin Total 0.8 mg/dL (0.2-1.0); Carbon Dioxide 29.4 mmol/L (21.0-32.0); Chloride 104 mmol/L (98-107); Chol HDL Ratio 3.2; Cholesterol 164 mg/dL (<=200); Estimated GFR (African America >60 (>=60 mL/min/1.73m^2); Estimated GFR (Non-African Ame >60 (>=60 mL/min/1.73m^2); Free T3 3.43 pg/mL (2.18-3.98); Globulin 3.4 g/dL; Glucose 100 mg/dL (74-106); HDL Cholesterol 51 mg/dL (40-60); LDL Cholesterol Calculated 96.8 mg/dL; Sodium 143 mmol/L (136-145); Thyroid Stimulating Hormone 0.829 uIU/mL (0.358-3.740); Total Protein 7.3 g/dL (6.4-8.2); Triglycerides 81 mg/dL (<=150); Uric Acid 6.8 mg/dL (3.5-7.2); VLDL CHOLESTEROL 16.2 mg/dL
[2024-08-13 11:35] LABS: Prostate Specific Antigen Scrn 2.92 ng/mL (<=4.00)
[2024-08-13 11:57] LABS: Estimated Average Glucose 103 mg/dL; Glycohemoglobin A1C 5.2 % (4.5-6.2)
[2024-08-14 15:08] LABS: Testosterone 888 ng/dL (264-916)
== END 2024-08-13 10:07 | disposition home or self-care (01) ==
LOC: LAB 10:08
PROVIDERS: PCP Nurse Practitioner Family; Visit Provider Nurse Practitioner Family
DX: Z00.00 Encounter for general adult medical examination without abnormal findings (principal)
CPT/HCPCS: 36415; 80053; 80061; 83036; 83525; 84403; 84436; 84443; 84481; 84550; G0103